=== PATIENT | female | born 1945 | race Caucasian/White ===

== ENCOUNTER 2023-04-20 13:36 | Emergency (ER) | payer MEDICARE, OTHER, SELFPAY ==
[2023-04-20 13:41] VITALS: BP 131/75
[2023-04-20 14:06] LABS: % Basophils 0.3 % (0-2); % Eosinophils 0.9 % (0-6); % Immature Granulocytes 0.3 % (0-0.5); % Lymphocytes 26.4 % (20.5-51.1); % Monocytes 5.7 % (1.7-9.3); % Neutrophils 66.4 % (42.2-75.2); Absolute Eosinophils 0.1 10^3/uL (0-0.7); Absolute Lymphocytes 2.3 10^3/uL (1.2-3.4); Absolute Monocytes 0.5 10^3/uL (0.1-0.6); Absolute Neutrophils 5.9 10^3/uL (1.4-6.5); Hematocrit 37.2 % (37.0-47.0); Hemoglobin 11.6 g/dL (12.0-16.0); Mean Corp Hgb Conc. 31.2 g/dL (33.0-37.0); Mean Corpuscular Hgb 21.6 pg (27.0-31.0); Mean Corpuscular Volume 69.3 fL (81.0-99.0); Mean Platelet Volume 9.6 fL (7.4-10.4); Nucleated Red Blood Cells % 0 %; Platelet Count 301 10^3/uL (130-400); Red Blood Cell Count 5.37 10^6/uL (4.20-5.40); Red Cell Dist. Width 15.4 % (11.5-14.5); White Blood Cell Count 8.9 10^3/uL (4.8-10.8)
[2023-04-20 14:08] LABS: Urine Albumin Trace (Neg - Trace); Urine Bilirubin Negative (Negative); Urine Character Very Cloudy (Clear); Urine Color Yellow; Urine Glucose Negative (Negative); Urine Ketone Trace (Negative); Urine Leukocyte 2+ (Negative); Urine Nitrite Negative (Negative); Urine Occult Blood 4+ (Negative); Urine Urobilinogen Negative (Neg - 1+)
[2023-04-20 14:16] LABS: Urine White Cell 16-20 /HPF (0-5)
[2023-04-20 14:17] LABS: Urine Bacteria Few (Negative); Urine Red Blood Cell >100 /HPF (0-2)
[2023-04-20 14:18] LABS: ALT (SGPT) 22 U/L (0-35); AST (SGOT) 23 U/L (14-36); Albumin 3.9 g/dl (3.5-5.0); Alkaline Phosphatase 75 U/L (38-126); Blood Urea Nitrogen 22 mg/dl (7-17); Calcium 9.5 mg/dl (8.4-10.2); Carbon Dioxide 32 mmol/L (22-30); Chloride 101 mmol/L (98-107); Glucose 95 mg/dl (70-99); Potassium 4.7 mmol/L (3.5-5.1); Sodium 140 mmol/L (135-145); Total Bilirubin 0.4 mg/dl (0.2-1.3); eGFR > 60.00
[2023-04-20 16:45] VITALS: BP 147/82; BMI 33.8
--- NOTE | 2023-04-20 16:54 | ED.GENMED ---
History of Present Illness
General
Chief Complaint: Back Pain
Source: patient
Exam Limitations: none
Time Seen by Provider: 04/20/23 16:46
Nursing documentation reviewed up to this point in time: agreed with
Travel History
Have you had any contact with someone who has COVID-19?: No
Do you have any symptoms of coronavirus? Fever > 100 degrees, chills, cough, shortness of breath, sore throat, loss of taste or smell, muscle aches, or headache?: No
History of Present Illness
History of Present Illness:
78-year-old female with history of HLD, migraines, kidney stones, cholecystectomy, hysterectomy presents stating she developed sudden onset right flank pain yesterday 11 AM, it waxes and wanes, her urine has been dark. She denies fever or chills,
she had nausea and almost vomited once yesterday morning but none since.
Past History
Past History
ED Past Medical History: Hypercholesterolemia and Other (Thalassemia, kidney stones, migraines)
ED Past Surgical History: Cholecystectomy
Social History
Tobacco: Non-smoker
Alcohol: None
Drug: None
Personal:
Living: with family
Review of Systems
Review of Systems
Allergies reviewed?: Yes
All Other Systems: ROS reviewed and negative except as documented in HPI and ROS
Constitutional: Denies fever or chills
ABD/GI: Reports abdominal pain (Mild mid to right lower abdomen) and nausea; Denies vomiting, diarrhea or constipated
: Reports flank pain (Right) and dark urine; Denies dysuria, difficulty voiding or urgency
Musculoskeletal: Reports no symptoms
Skin: Reports no symptoms
Neurological: Reports no symptoms
Phy Exam
Physical Exam
Physical Exam:
GENERAL: No acute distress. A&Ox3.
CONSTITUTIONAL: Afebrile.
RESPIRATORY: Regular respirations, nonlabored, lungs clear.
CARDIOVASCULAR: Regular rate and rhythm, no murmurs, no rubs.
GI: Soft, nontender, normal BS. Right flank tender to percussion
MUSCULOSKELETAL: Moves with ease. Well perfused.
SKIN: Warm, dry, pink
PSYCH: Normal mood and affect. Well kept, interactive and appropriate
NEUROLOGIC: Awake, alert and oriented. No focal neurological deficits
Course
Orders/Labs/Results
Orders:
Orders
04/20/23 13:53
Complete Blood Count/With Diff Urgent
Comprehensive Metabolic Panel Urgent
04/20/23 13:57
Urinalysis Reflex To Culture Urgent
Date Specimen was Collected: 04/20/23
Time Specimen was Collected: 13:43
Urine Microscopic Reflex Cult Urgent
Urine Culture Urgent
KYLE Source: U
Specimen Description:
Date Specimen was Collected: 04/20/23
Time Specimen was Collected: 13:43
04/20/23 16:57
CT Abd/pel Without Iv Or Oral Urgent
Comment:
Reason For Exam: R flank pain, hx stones
04/20/23 18:19
Ibuprofen [Motrin] 600 mg PO NOW STA
Nitrofurantoin Monohydrate [Macrobid] 100 mg PO NOW STA
Abnormal Lab Results
04/20/23 04/20/23
13:53 13:57
Hgb 11.6 L g/dL
(12.0-16.0)
MCV 69.3 L fL
(81.0-99.0)
MCH 21.6 L pg
(27.0-31.0)
MCHC 31.2 L g/dL
(33.0-37.0)
RDW 15.4 H %
(11.5-14.5)
Carbon Dioxide 32 H mmol/L
(22-30)
BUN 22 H mg/dl
(7-17)
Urine Ketones Trace A
(Negative)
Ur Occult Blood Reflex 4+ A
(Negative)
Leukocyte Esterase Rfl 2+ A
(Negative)
Urine RBC >100 A /HPF
(0-2)
Urine WBC (Reflex) 16-20 A /HPF
(0-5)
Urine Bacteria (Reflex) Few A
(Negative)
04/20/23 13:53
04/20/23 13:53
Vital Signs
Initial and Last Documented VS:
Initial Vital Signs
Temp Pulse Resp BP Pulse Ox
98.2 F 83 16 131/75 98
04/20/23 13:41 04/20/23 13:41 04/20/23 13:41 04/20/23 13:41 04/20/23 13:41
Last Documented Vital Signs
Temp Pulse Resp BP Pulse Ox
98.2 F 80 18 119/78 98
04/20/23 13:41 04/20/23 18:40 04/20/23 18:40 04/20/23 18:40 04/20/23 18:40
MDM/Problems Addressed
Differential Diagnosis Includes:
kidney stone, ureteral stone, UTI, pyelonephritis
MDM/Problems Addressed:
78-year-old female with history of HLD, migraines, kidney stones, cholecystectomy, hysterectomy presents stating she developed sudden onset right flank pain yesterday 11 AM, it waxes and wanes, her urine has been dark and only urinating small
amounts. She denies fever or chills, she had nausea and almost vomited once yesterday morning but none since.
Afebrile, NAD, declines when pain med offered
04/20/2023 1659 PM
CBC with no clinically significant abnormality
CMP with no clinically significant abnormality
UA: No nitrites, 2+ leukocytes, 16-20 WBCs. Few bacteria
Greater than 100 RBCs, plus for occult blood
04/20/[address] abdomen pelvis radiology results reviewed: IMPRESSION:
No findings to suggest urinary tract calculus or dilatation bilaterally.
Likely small hiatal hernia.
Small fat only containing umbilical hernia.
Will treat for hemorrhagic cystitis, UTI Rx for Nitrofurantoin sent to her pharmacy. She has had UTI in past with organism sensitivity to Nitrofurantoin
Not sure of etiology of right flank, abdomen pain, recommend Ibuprofen to see if it helps. See PCP if no improvement or if worsens
She has seen Urologist Dr. Lyons in the past and recommend f/u with him in 1-2 weeks.
*Critical Care Note
Total Time (30-74mins, 75-104mins- exclusive of procedures): Not Applicable
ED Attending Note
-
Portions of this chart may have been created with voice recognition software.� Occasional wrong word or��sound alike� substitutions may have occurred due to the inherent limitations of voice recognition software.
Discharge Plan
Departure
Patient Disposition: Home (Routine Discharge)
Date of Disposition: 04/20/23
Time of Disposition: 18:22
Patient with high blood pressure during this ER visit?: No
Condition: Good
Discharge Problem:
Acute hemorrhagic cystitis, Acute right flank pain
Instructions: Urinary tract infections in adults, Acute Cystitis (DC)
Prescriptions:
New
nitrofurantoin macrocrystal 100 mg capsule
100 mg PO BID 5 Days Qty: 10 0RF
No Action
aspirin 81 mg Tablet,Delayed Release (Dr/Ec)
81 mg PO DAILY
simvastatin 40 mg Tablet
40 mg PO QPM
calcium carbonate 600 mg calcium (1,500 mg) Tablet
750 mg PO DAILY
cyanocobalamin (vitamin B-12) 500 mcg Tablet
500 mcg PO DAILY
nortriptyline 10 mg Capsule
30 mg PO QHS
vitamin K2 40 mcg Tablet
40 mcg PO DAILY
ascorbic acid (vitamin C) [Vitamin C] 500 mg Tablet
500 mg PO DAILY
zinc 50 mg Tablet
50 mg PO DAILY
cholecalciferol (vitamin D3) [Vitamin D3] 125 mcg (5,000 unit) Tablet
125 mcg PO DAILY
cefdinir 300 mg capsule
300 mg PO BID
Rx Instructions:
10/28/22 filled on 10/27/22 #14
Referrals:
Nando Lyons MD [Active] - Call in 1-3 days for appt
Gregory Coronado MD [Family Provider] -
Activity Restrictions/Additional Instructions:
As we discussed, you are being treating you for a urinary tract infection.
I sent a prescription to your pharmacy for the antibiotic Nitrofurantoin to take twice a day. Start it tomorrow as you were given a dose here today.
Call and make appointment with Dr. Rao in 1-2 weeks for recheck.
Ibuprofen 600 mg (with food) as needed for right side back and abdominal pain.
See your doctor or return here immediately for worsening abdominal pain, vomiting, fever or feeling sicker in any way.
Interventions
Interventions:
*Risk Screen - Suicide Last Done: 04/20/23 18:21
*General Assessment Last Done: 04/20/23 16:45
*Neglect/Abuse Screening Last Done: 04/20/23 18:21
ED- Fall Risk Assessment Last Done: 04/20/23 16:45
*ED COVID-19 Vaccine History Last Done: 04/20/23 13:41
*Nursing Disposition Last Done: 04/20/23 18:40
ED-Musculoskeletal Assessment Last Done: 04/20/23 16:45
Discharge Date and Time
Discharge Date/Time: 04/20/23 18:40
[2023-04-20] MEDS: MACROBID 100 MG PO (18:33)
[2023-04-20] MEDS: MOTRIN 600 MG PO (18:33)
[2023-04-20 18:40] VITALS: BP 119/78
--- NOTE | 2023-04-20 18:40 | EDRN ---
Reviewed discharge instructions with patient. Verbalized understanding. Ambulated with steady gait to the lobby.
== END 2023-04-20 18:40 | disposition home or self-care (01) ==
LOC: EMR 13:36
PROVIDERS: Emergency Medicine; EMERGENCY PHYSICIAN Emergency Medicine; FAMILY PHYSICIAN Family Medicine
DX: N30.01 Acute cystitis with hematuria (principal); R10.9 Unspecified abdominal pain; E78.00 Pure hypercholesterolemia, unspecified; Z87.442 Personal history of urinary calculi
CPT/HCPCS: 99285; 74176; 80053; 81003; 81015; 85025; 87086

== ENCOUNTER 2023-04-22 02:54 | Inpatient (IN) | payer MEDICARE, OTHER, SELFPAY ==
[2023-04-21 21:46] VITALS: BP 138/96
[2023-04-21 22:10] LABS: Urine Albumin Negative (Neg - Trace); Urine Bilirubin Negative (Negative); Urine Character Clear (Clear); Urine Color Yellow; Urine Glucose Negative (Negative); Urine Ketone Negative (Negative); Urine Leukocyte Negative (Negative); Urine Nitrite Negative (Negative); Urine Occult Blood Negative (Negative); Urine Urobilinogen Negative (Neg - 1+)
[2023-04-21 22:12] LABS: % Basophils 0.3 % (0-2); % Eosinophils 1.6 % (0-6); % Immature Granulocytes 0.2 % (0-0.5); % Monocytes 5.6 % (1.7-9.3); % Neutrophils 83.3 % (42.2-75.2); Absolute Eosinophils 0.2 10^3/uL (0-0.7); Absolute Lymphocytes 1.1 10^3/uL (1.2-3.4); Absolute Monocytes 0.7 10^3/uL (0.1-0.6); Absolute Neutrophils 10.2 10^3/uL (1.4-6.5); Hematocrit 38.7 % (37.0-47.0); Hemoglobin 12.3 g/dL (12.0-16.0); Mean Corp Hgb Conc. 31.8 g/dL (33.0-37.0); Mean Corpuscular Hgb 21.9 pg (27.0-31.0); Mean Corpuscular Volume 68.9 fL (81.0-99.0); Mean Platelet Volume 9.6 fL (7.4-10.4); Nucleated Red Blood Cells % 0 %; Platelet Count 312 10^3/uL (130-400); Red Blood Cell Count 5.62 10^6/uL (4.20-5.40); Red Cell Dist. Width 14.7 % (11.5-14.5); White Blood Cell Count 12.3 10^3/uL (4.8-10.8)
[2023-04-21 22:21] LABS: Lactic Acid 1.4 mmol/L (0.7-2.0)
[2023-04-21 22:30] LABS: ALT (SGPT) 22 U/L (0-35); AST (SGOT) 26 U/L (14-36); Albumin 4.1 g/dl (3.5-5.0); Alkaline Phosphatase 100 U/L (38-126); Blood Urea Nitrogen 19 mg/dl (7-17); Calcium 9.4 mg/dl (8.4-10.2); Carbon Dioxide 28 mmol/L (22-30); Chloride 100 mmol/L (98-107); Glucose 130 mg/dl (70-99); Potassium 4.5 mmol/L (3.5-5.1); Sodium 134 mmol/L (135-145); Total Bilirubin 0.6 mg/dl (0.2-1.3); Total Protein 7.4 g/dl (6.3-8.2); eGFR > 60.00
--- NOTE | 2023-04-21 23:49 | ED.GENMED ---
History of Present Illness
General
Chief Complaint: Fever
Source: patient
Exam Limitations: none
Time Seen by Provider: 04/21/23 23:35
Travel History
Have you had any contact with someone who has COVID-19?: No
Do you have any symptoms of coronavirus? Fever > 100 degrees, chills, cough, shortness of breath, sore throat, loss of taste or smell, muscle aches, or headache?: No
History of Present Illness
History of Present Illness:
This is a 78 year old female that comes in with c/o fever. States that she was here yesterday and she was diagnosed with a bladder infection. State that she was given Nitrofurantoin. Tonight she started with a fever of 101 at home. State that she
just felt weak and had no strength. States that she was nauseated vomiting has a headache and felt of balance. States that felt weakn. States that she had chills with her fever. Denies any chest pain, SOB, abd pain, diarrhea, urinary burning.
Past History
Past History
ED Past Medical History: Hypercholesterolemia and Other (Thalassemia, kidney stones, migraines)
ED Past Surgical History: Cholecystectomy and Gynecological (Hysterectomy)
Social History
Tobacco: Non-smoker
Alcohol: None
Drug: None
Personal:
Living: with family
Review of Systems
Review of Systems
All Other Systems: ROS reviewed and negative except as documented in HPI and ROS
Constitutional: Reports fever and chills
EENT: Reports no symptoms
Respiratory: Reports no symptoms; Denies cough or trouble breathing
Cardiac: Reports no symptoms; Denies chest pain
ABD/GI: Reports nausea and vomiting; Denies abdominal pain or diarrhea
: Reports no symptoms; Denies dysuria, frequency or urgency
Musculoskeletal: Reports no symptoms
Skin: Reports no symptoms
Neurological: Reports dizzy and headache
Psychiatric: Reports no symptoms
Phy Exam
General Physical Exam
General Presentation: no apparent distress
General age: appears stated age
General Skin: warm and dry
General Habitus: elderly
General Mental: alert
General Hydration: appears well hydrated
ENT Exam
ENT Exam: TM's normal, pharynx normal and neck supple
Eye Exam
Eye Exam: EOMI
Cardiovascular Exam
Cardiovascular Exam: regular rate/rhythm, no edema and normal peripheral pulses
Pulmonary Exam
Pulmonary Exam: lungs clear, no respiratory distress, no rales, chest non tender, no crackles, no rhonchi, no wheezing and no cough
Gastrointestinal Exam
Gastrointestinal Exam: normal bowel sounds, soft, no organomegaly, no pulsatile mass, non distended and tender (right lower abd pain)
Musculoskeletal Exam
Musculoskeletal Exam: full ROM and no edema
Skin Exam
Skin Exam: normal color, warm/dry, no rash and no petechia
Psychiatric Exam
Psychiatric Exam: normal mood/affect
Course
Orders/Labs/Results
Orders:
Orders
04/21/23 21:59
CMP [Comprehensive Metabolic Panel] Urgent
04/21/23 22:00
Complete Blood Count/With Diff Urgent
Urinalysis Urgent
Date Specimen was Collected: 04/21/23
Time Specimen was Collected: 21:51
Influenza A+B Rapid Molecular Urgent
KYLE Source: Nasal Swab
Specimen Description:
Date Specimen was Collected: 04/21/23
Time Specimen was Collected: 21:51
04/21/23 22:01
Lactic Acid Urgent
04/21/23 23:47
0.9% Sodium Chloride 1000 ml [Nss] 1,000 ml IV BOLUS
04/21/23 23:49
Acetaminophen 1000MG/100Ml [Ofirmev] 1,000 mg in 100 ml IV ONCE
Acetaminophen IV Indication:: ED Narcotic Naive Pt-ONCE
04/21/23 23:58
COVID-19 Antigen Urgent
Source: Nasal Swab
Blood Culture Q30M
KYLE Source: Blood/Venous
Specimen Description:
04/22/23 00:07
Blood Culture Q30M
KYLE Source: Blood/Venous
Specimen Description:
04/22/23 00:15
CT Abd/pelvis W Iv Cont Urgent
Reason For Exam: Right lower abd pain
04/22/23 01:42
Electrocardiogram (*1) Urgent
Reason for Study: Fatigue / Weakness
EKG- Treatment ONCE
04/22/23 01:51
Admit/Transfer Patient As Directed
Co-Sign Provider:
Level of Care: Inpatient admission
Assign to:: Medical/Surgical
Physician / Group: [facility]
Diagnosis: UTI, fevers, leukoytosis
Reason for Hospitalization: UTI - IV Abx
Expected length of stay greater than two midnights?: Yes
ELOS- Estimated Length of Stay in days: 2
I certify the patient meets the requirements for IP care: Yes
04/22/23 01:52
Code Status As Directed
Resuscitation Status: Full Code
04/22/23 01:54
CefTRIAXone [Rocephin] 1,000 mg IV NOW STA
04/22/23 01:57
Sterile Water [Sterile Water For Injection] 10 ml IV NOW STA
04/22/23 02:00
Flush (0.9% Sodium Chloride) [Flush (Nss)] See Dose Instructions IV PER PROTOCOL
Abnormal Lab Results
04/21/23 04/21/23
21:59 22:00
WBC 12.3 H 10^3/uL
(4.8-10.8)
RBC 5.62 H 10^6/uL
(4.20-5.40)
MCV 68.9 L fL
(81.0-99.0)
MCH 21.9 L pg
(27.0-31.0)
MCHC 31.8 L g/dL
(33.0-37.0)
RDW 14.7 H %
(11.5-14.5)
Absolute Neuts (auto) 10.2 H 10^3/uL
(1.4-6.5)
Absolute Lymphs (auto) 1.1 L 10^3/uL
(1.2-3.4)
Absolute Monos (auto) 0.7 H 10^3/uL
(0.1-0.6)
Neutrophils % 83.3 H %
(42.2-75.2)
Lymphocytes % 9.0 L %
(20.5-51.1)
Sodium 134 L mmol/L
(135-145)
BUN 19 H mg/dl
(7-17)
Glucose 130 H mg/dl
(70-99)
04/21/23 22:00
04/21/23 21:59
Leukocytosis, slight dehydration. Glucose nonfasting. Urine negative for infection. Negative for influenza , COVID negative, Lactic acid normal at 1.4
Vital Signs
Initial and Last Documented VS:
Initial Vital Signs
Temp Pulse Resp BP Pulse Ox
101.1 F H 106 24 138/96 96
04/21/23 21:46 04/21/23 21:46 04/21/23 21:46 04/21/23 21:46 04/21/23 21:46
Last Documented Vital Signs
Temp Pulse Resp BP Pulse Ox
99.4 F 105 18 112/78 96
04/22/23 01:04 04/22/23 02:01 04/22/23 02:01 04/22/23 02:01 04/22/23 02:01
MDM/Problems Addressed
Differential Diagnosis Includes:
Appendicitis, bacterial infection. COVID, Influenza
MDM/Problems Addressed:
This is a 78 year old female that comes in with c/o fever. States that she was here last night and diagnosed with a UTI. Patient was given Nitrofurantoin and discharge home. States that tonight she has a fever of 101 at home and was very weak and
felt like she was going to pass out.
Will get labs, CT abd, IV fluids and Tylenol.
Back into see patient. Explained that her WBC are elevated but her CT is normal along with her lactic acid. Patient is negative for COVID and influenza. However, that fact that she was diagnosed with a UTI yesterday it is concerning that this could
be an infection in the blood or a viral illness. With patient weakness will admit. Patient states that this time she is feeling better. Will admit. hospitalist notified.
Chronic conditions affecting care:
NA
Acute Exacerbation and/or Progression of Chronic Illness:
NA
*Radiology
Radiology exam reviewed: radiology read reviewed (CT [place]-Minimal inferior lingual scatting or atelectasis. Normal heart size. No pleural effusion. No free air or fluid. Subcentimeter possible cysts right hepatic lobe. Cholecystectomy with no
biliary duct dilation. A few too small to characterize low density renal cortical foci. No ), all reviewed NAD by ED Provider (CT cont- No hydronephrosis, stone or perinephric edema. Other solid organs are unremarkable. Hysterectomy with
unremarkable adnexa and minimally filled urinary bladder. Minimal fecal loading with normal terminal ileum and appendix. Small sliding hiatal hernia. Small bowel unremarkable. Minimal ) and other (CT cont- minimal aortic atherosclerosis without
aneurysm. Tiny fat-containing umbilical hernia. No acute osseous abnormality. )
*Pulse Oximetry
Patient hypoxic: no
*EKG
Interpreted by ED Provider?: Yes
Heart Rate: 99
Rate: normal
Rhythm: sinus
[place]: normal axis
Interval: normal interval
QRS Pattern: normal QRS
Ischemia: no ischemia
*Technical Assoc Interpretation
Rate: Technical Assoc- N/A
*Critical Care Note
Total Time (30-74mins, 75-104mins- exclusive of procedures): Not Applicable
ED Attending Note
-
Portions of this chart may have been created with voice recognition software.� Occasional wrong word or��sound alike� substitutions may have occurred due to the inherent limitations of voice recognition software.
Discharge Plan
Departure
Patient Disposition: Admit
Date of Disposition: 04/22/23
Time of Disposition: 01:40
Admit to: Med/Surg
Presentation/result/management discussed w/ accepting MD/DO: Hospitalist
Patient with high blood pressure during this ER visit?: Yes
Condition: Good
Covid-19: Negative COVID-19
Discharge Problem:
Fever and chills, Weakness
Prescriptions:
No Action
simvastatin 40 mg Tablet
40 mg PO QPM
cyanocobalamin (vitamin B-12) 500 mcg Tablet
500 mcg PO DAILY
nortriptyline 10 mg Capsule
30 mg PO QHS
vitamin K2 40 mcg Tablet
40 mcg PO DAILY
ascorbic acid (vitamin C) [Vitamin C] 500 mg Tablet
500 mg PO DAILY
zinc 50 mg Tablet
50 mg PO DAILY
cholecalciferol (vitamin D3) [Vitamin D3] 125 mcg (5,000 unit) Tablet
125 mcg PO DAILY
nitrofurantoin macrocrystal 100 mg capsule
100 mg PO BID 5 Days Qty: 10 0RF
pantoprazole [Protonix] 40 mg Tablet,Delayed Release (Dr/Ec)
40 mg PO DAILY
Referrals:
Gregory Coronado MD [Family Provider] -
Interventions
Interventions:
*Risk Screen - Suicide Last Done: 04/21/23 21:46
*General Assessment Last Done: 04/22/23 00:23
*Neglect/Abuse Screening Last Done: 04/21/23 21:46
ED- Fall Risk Assessment Last Done: 04/22/23 00:18
*ED COVID-19 Vaccine History Last Done: 04/22/23 00:23
ED- Neurological Assessment Last Done: 04/22/23 00:18
ED-Skin Assessment Last Done: 04/22/23 00:18
[2023-04-21 23:57] VITALS: BMI 35.9
[2023-04-22] VITALS: BP 122/65
[2023-04-22] MEDS: OFIRMEV 100 IV (00:04)
[2023-04-22] MEDS: NSS 1000 IV ×2 (00:04→03:19)
[2023-04-22 00:47] LABS: COVID-19 Antigen Negative (Negative)
--- NOTE | 2023-04-22 01:44 | HPS.HSE ---
Family Physician
-
Family Physician: Gregory Coronado
Chief Complaint
-
fever
History of Present Illness
78 y/o F, hx of HLD, hx of renal stones, presents to ER for fever. Temp recorded as 101.1. Patient is currently on PO Abx for UTI dx 24 hours earlier in ER (dark urine, flank pain). Patient reports weakness, poor strength. Other symptoms include
nausea/vomiting, headache and imbalance. She admits to chills as well. No SOB, abd pain.
Medical History
Past Medical History
Past Medical History: Reports Other (Hypercholesterolemia and Other (Thalassemia, kidney stones, migraines))
Past Surgical History: Reports Other (Cholecystectomy and Gynecological (Hysterectomy))
Social History
Tobacco: Non-smoker
Alcohol: None
Drug: None
Personal:
Living: With Family
Family History
Family History: Not pertinent
Allergies / Home Medications
Allergies reflects when Allergies were last updated in [email or web address].
Home Medications with original date entered in [email or web address]
Allergy/Medication List:
Allergies
Allergy/AdvReac Type Severity Reaction Status Date / Time
adhesive tape Allergy Mild Rash Verified 04/21/23 21:50
Home Medications
ascorbic acid (vitamin C) 500 mg tablet (Vitamin C) 500 mg PO DAILY Supplement 10/28/22
cholecalciferol (vitamin D3) 125 mcg (5,000 unit) tablet (Vitamin D3) 125 mcg PO DAILY Supplement 10/28/22
cyanocobalamin (vitamin B-12) 500 mcg tablet 500 mcg PO DAILY Supplement 10/28/22
nortriptyline 10 mg capsule 30 mg PO QHS Mental Health/Anxiety 10/28/22
simvastatin 40 mg tablet 40 mg PO QPM High Cholesterol 10/28/22
vitamin K2 40 mcg tablet 40 mcg PO DAILY Supplement 10/28/22
zinc 50 mg tablet 50 mg PO DAILY Supplement 10/28/22
nitrofurantoin macrocrystal 100 mg capsule 100 mg PO BID 5 days #10 caps 04/20/23
pantoprazole 40 mg tablet,delayed release (Protonix) 40 mg PO DAILY 04/22/23
Review of Systems
-
A 12 point ROS was completed and negative except as noted: Yes
Physical Exam
Vital Signs
Vital Signs
Temp Pulse Resp BP Pulse Ox
99.4 F 106 20 122/65 94
04/22/23 01:04 04/22/23 00:00 04/22/23 00:00 04/22/23 00:00 04/22/23 00:00
Physical Exam
General: No Apparent Distress and Other (elderly)
HEENT: NormoCephalic and Anicteric
Respiratory: No Wheezes or Rales
Cardiac: S1/S2 and Regular Rhythm
Neuro: AO x 3
Psych: Calm
Laboratory Results
-
04/21/23 22:00
04/21/23 21:59
Laboratory Results
Lactic Acid 1.4 mmol/L (0.7-2.0) 04/21/23 22:01
Total Bilirubin 0.6 mg/dl (0.2-1.3) 04/21/23 21:59
AST 26 U/L (14-36) 04/21/23 21:59
ALT 22 U/L (0-35) 04/21/23 21:59
Alkaline Phosphatase 100 U/L (38-126) 04/21/23 21:59
Data Reviewed
-
Lab Data: Labs Reviewed by me
Impression/Plan
-
Assessment:
Fever
- suspected UTI based off UA 3/4 and symptoms
- Ucx from that UA with only [id number] CU. but with recurrent fevers, repeat culture now
- follow blood cultures
- CT: prelim no stones, hydro - await formal report
- Empiric Rocephin, day 1
- monitor fever curve, WBC
Hypercholesterolemia - statin
Thalassemia
hx of kidney stones
migraines
DVT ppx: Lovenox
Code: Full
[2023-04-22 02:01] VITALS: BP 112/78
[2023-04-22] MEDS: STERILE WATER FOR INJECTION 10 ML IV ×2 (02:26→22:38)
[2023-04-22] MEDS: ROCEPHIN 1000 MG IV ×2 (02:26→22:38)
[2023-04-22] MEDS: PAMELOR PO (03:21)
[2023-04-22 05:37] VITALS: BP 137/73; BMI 33.3
[2023-04-22 07:07] LABS: Hematocrit 33.2 % (37.0-47.0); Hemoglobin 10.7 g/dL (12.0-16.0); Mean Corp Hgb Conc. 32.2 g/dL (33.0-37.0); Mean Corpuscular Hgb 21.8 pg (27.0-31.0); Mean Corpuscular Volume 67.6 fL (81.0-99.0); Mean Platelet Volume 9.6 fL (7.4-10.4); Platelet Count 252 10^3/uL (130-400); Red Blood Cell Count 4.91 10^6/uL (4.20-5.40); Red Cell Dist. Width 14.8 % (11.5-14.5); White Blood Cell Count 9.5 10^3/uL (4.8-10.8)
[2023-04-22 07:16] VITALS: BP 120/75
[2023-04-22 07:18] LABS: Blood Urea Nitrogen 15 mg/dl (7-17); Calcium 8.5 mg/dl (8.4-10.2); Carbon Dioxide 26 mmol/L (22-30); Chloride 106 mmol/L (98-107); Estimated Creatinine Clearance 75 ml/min; Glucose 101 mg/dl (70-99); Potassium 3.6 mmol/L (3.5-5.1); Sodium 137 mmol/L (135-145); eGFR > 60.00
[2023-04-22] MEDS: VITAMIN C 500 MG PO (07:28)
[2023-04-22] MEDS: PROTONIX 40 MG PO (07:29)
[2023-04-22] MEDS: VITAMIN B-12 500 MCG PO (07:29)
[2023-04-22] MEDS: VITAMIN D3 (cholecalciferol) 125 MCG PO (07:29)
[2023-04-22] MEDS: TYLENOL 650 MG PO (11:35)
--- NOTE | 2023-04-22 11:51 | W.PN.UPDATE ---
Update Note
Progress Note Update
Seen and examined independent of overnight physician. States tolerating diet. Fever on admission.
General: No Apparent Distress and Other (elderly)
HEENT: NormoCephalic and Anicteric
Respiratory: No Wheezes or Rales
Cardiac: S1/S2 and Regular Rhythm
Abdomen positive bowel sounds soft nontender nondistended
Neuro: AO x 3
Psych: Calm
Fever
- suspected UTI based off UA 04/19 and symptoms
- Ucx from that UA with only [id number] CU. but with recurrent fevers, repeat culture pending in lab
- follow blood cultures
- CT negative for obstruction.
- Empiric Rocephin, day 1
- monitor fever curve, WBC
Hypercholesterolemia - statin
Thalassemia
hx of kidney stones
migraines
DVT ppx: Lovenox
Code: Full
--- NOTE | 2023-04-22 13:49 | CM ---
manager manufacturing reviewed patient's chart and met with patient and patient lives with his spouse in a 2 story home, patient is independent with adl's and ambulation, no dme, patient drives, patient has a prescription plan and uses [facility] pharmacy.
PCP: Dr. Ayala
Plan; Home when stable, no needs.
[2023-04-22 15:35] VITALS: BP 110/62
[2023-04-22] MEDS: LIPITOR 20 MG PO (17:29)
[2023-04-22] MEDS: LOVENOX 40 MG SC (17:30)
[2023-04-22] MEDS: PAMELOR 30 MG PO (20:34)
[2023-04-22] MEDS: COLACE 100 MG PO (22:38)
[2023-04-22 23:06] VITALS: BP 149/73
[2023-04-23 07:08] LABS: % Basophils 0.4 % (0-2); % Eosinophils 6.8 % (0-6); % Immature Granulocytes 0.1 % (0-0.5); % Lymphocytes 19.9 % (20.5-51.1); % Monocytes 9.3 % (1.7-9.3); % Neutrophils 63.5 % (42.2-75.2); Absolute Eosinophils 0.5 10^3/uL (0-0.7); Absolute Lymphocytes 1.3 10^3/uL (1.2-3.4); Absolute Monocytes 0.6 10^3/uL (0.1-0.6); Absolute Neutrophils 4.3 10^3/uL (1.4-6.5); Hematocrit 32.8 % (37.0-47.0); Hemoglobin 10.4 g/dL (12.0-16.0); Mean Corp Hgb Conc. 31.7 g/dL (33.0-37.0); Mean Corpuscular Hgb 21.5 pg (27.0-31.0); Mean Corpuscular Volume 67.9 fL (81.0-99.0); Nucleated Red Blood Cells % 0 %; Platelet Count 240 10^3/uL (130-400); Red Blood Cell Count 4.83 10^6/uL (4.20-5.40); Red Cell Dist. Width 14.6 % (11.5-14.5); White Blood Cell Count 6.7 10^3/uL (4.8-10.8)
[2023-04-23 07:41] LABS: Blood Urea Nitrogen 18 mg/dl (7-17); Calcium 8.8 mg/dl (8.4-10.2); Carbon Dioxide 27 mmol/L (22-30); Chloride 102 mmol/L (98-107); Estimated Creatinine Clearance 75 ml/min; Glucose 94 mg/dl (70-99); Sodium 135 mmol/L (135-145); eGFR > 60.00
[2023-04-23 08:00] VITALS: BP 149/70
[2023-04-23] MEDS: VITAMIN B-12 500 MCG PO (10:15)
[2023-04-23] MEDS: VITAMIN D3 (cholecalciferol) 125 MCG PO (10:15)
[2023-04-23] MEDS: COLACE 100 MG PO ×2 (10:15→20:00)
[2023-04-23] MEDS: PROTONIX 40 MG PO (10:16)
[2023-04-23] MEDS: VITAMIN C 500 MG PO (10:16)
--- NOTE | 2023-04-23 10:36 | PTOTSP ---
The patient is independent with ambulation and elevations, demonstrating no mobility deficits to warrant acute PT needs. Patient noted she plans to attend Outpatient PT to improve left knee strength. PT will sign off at this time.
--- NOTE | 2023-04-23 11:34 | CM ---
Chart reviewed and patient plans on returning to home with spouse with possible outpatient PT.
Plan; Home no needs.
--- NOTE | 2023-04-23 12:03 | W.PN.HOSP.TC ---
Today's Communication/Plan
-
Monitor fever
Continue antibiotic
start Dispo planning
Assessment / Plan
Assessment / Plan
Fever
- suspected UTI based off UA 3/4 and symptoms
- Ucx with no growth. No cough. No GI symptoms. No rash.
- follow blood cultures neg so far.
- CT negative for obstruction.
- Treat with rocephin.
- monitor fever curve, WBC downtrended.
Hypercholesterolemia - statin
Thalassemia
hx of kidney stones
migraines
DVT ppx: Lovenox
Code: Full
Anticipated Discharge: Within 24 hours
Subjective/Interval History
-
Date of Service: April 23, 2023
Afebrile
Denies flank pain
Objective Data
-
Labs:
Laboratory Results
04/23/23
06:30
WBC 6.7
Hgb 10.4 L
Hct 32.8 L
Plt Count 240
Sodium 135
Potassium 4.0
Chloride 102
Carbon Dioxide 27
BUN 18 H
Creatinine 0.5 L
Glucose 94
Calcium 8.8
Vital Signs:
Vital Signs
Temp Pulse Resp BP Pulse Ox
98.6 F 76 18 149/70 95
04/23/23 08:00 04/23/23 08:00 04/23/23 08:00 04/23/23 08:00 04/23/23 08:00
I&O
04/22/23 04/23/23 04/24/23
06:59 06:59 06:59
Intake Total 660 / 660
Balance 660 / 660
Physical Exam
-
General: Well Developed and No Apparent Distress
HEENT: Normocephalic, Atraumatic and Moist Mucous Membranes
Respiratory: Clear to Auscultation
Cardiac: Regular Rhythm and S1/S2; Negative Murmur, Rub or Gallop
GI: Soft, Nontender, Nondistended and Normal Bowel Sounds; Negative Organomegaly
Rectal: Deferred by Provider
Genito-urinary: No Costovertebral Tender
Musculoskeletal: No Clubbing, No Cyanosis and No Edema
Skin: Negative Rash
Neuro: Awake, Alert, Oriented, AO x 3 and Nonfocal/Grossly Intact
Psych: Calm
--- NOTE | 2023-04-23 14:18 | PN.CDI ---
CDI
- -
CDI:
Physician Documentation Request
Admit Date: 04/22/23 02:54
Dear Doctor Jossy,
Patient presented to ED with complaints of fever.
H&P and progress notes states 'Fever- suspected UTI based off UA 3/4 and symptoms... treat with Rocephin'
Patient presented with a temp of 101.1, Heart rate 106, respiratory rate of 24 and WBC 12.3
Please clarify which of the following most accurately describes the status of the patient's infection:
Sepsis
- Systemic manifestations of infection, with 2 or more SIRS criteria which include:
- Fever >100.4 degrees F or hypothermia < 96.8 degrees F
- Leukocytosis - WBC > 12,000 or leukopenia - WBC < 4,000 or > 10% bands
- Tachycardia > 90 beats per minute
- Tachypnea - RR > 20 breaths per minute or PaCO2 , 32mmHg
Source: Merck Manual 2013
Localized Infection Only, Without Systemic Illness
Other
Use of terms such as suspected, likely, concern for, or probable (associated with a specific diagnosis that is being evaluated, monitored, or treated as if it exists) are acceptable and can be coded in the inpatient setting, when documented at the
time of discharge.
Thank you,
Agustina Franco RN, BSN
CDI Specialist
tiger text
Please use your independent medical judgment in providing your response.
[2023-04-23 15:00] VITALS: BP 165/62
[2023-04-23] MEDS: LOVENOX 40 MG SC (17:12)
[2023-04-23] MEDS: LIPITOR 20 MG PO (17:12)
[2023-04-23] MEDS: REFRESH EYE DROPS (PF) 1 DROPS OPHTH ×2 (17:13→20:01)
[2023-04-23] MEDS: MIRALAX 17 GRAMS PO (20:54)
[2023-04-23] MEDS: MELATONIN 3 MG PO (21:41)
[2023-04-23] MEDS: PAMELOR 30 MG PO (21:41)
[2023-04-23] MEDS: ROCEPHIN 1000 MG IV (22:59)
[2023-04-23] MEDS: STERILE WATER FOR INJECTION 10 ML IV (22:59)
[2023-04-23 23:00] VITALS: BP 149/66
[2023-04-24 07:20] VITALS: BP 135/69
[2023-04-24 07:57] LABS: % Basophils 0.6 % (0-2); % Eosinophils 6.8 % (0-6); % Immature Granulocytes 0.3 % (0-0.5); % Lymphocytes 25.7 % (20.5-51.1); % Neutrophils 57.6 % (42.2-75.2); Absolute Eosinophils 0.4 10^3/uL (0-0.7); Absolute Lymphocytes 1.7 10^3/uL (1.2-3.4); Absolute Monocytes 0.6 10^3/uL (0.1-0.6); Absolute Neutrophils 3.7 10^3/uL (1.4-6.5); Hematocrit 37.9 % (37.0-47.0); Hemoglobin 12.1 g/dL (12.0-16.0); Mean Corp Hgb Conc. 31.9 g/dL (33.0-37.0); Mean Corpuscular Hgb 21.7 pg (27.0-31.0); Mean Platelet Volume 9.6 fL (7.4-10.4); Nucleated Red Blood Cells % 0 %; Platelet Count 292 10^3/uL (130-400); Red Blood Cell Count 5.57 10^6/uL (4.20-5.40); Red Cell Dist. Width 14.9 % (11.5-14.5); White Blood Cell Count 6.5 10^3/uL (4.8-10.8)
[2023-04-24 08:27] LABS: Blood Urea Nitrogen 19 mg/dl (7-17); Calcium 9.5 mg/dl (8.4-10.2); Carbon Dioxide 27 mmol/L (22-30); Chloride 102 mmol/L (98-107); Estimated Creatinine Clearance 75 ml/min; Glucose 106 mg/dl (70-99); Potassium 3.9 mmol/L (3.5-5.1); Sodium 138 mmol/L (135-145); eGFR > 60.00
[2023-04-24] MEDS: PROTONIX 40 MG PO (09:29)
[2023-04-24] MEDS: VITAMIN C 500 MG PO (09:29)
[2023-04-24] MEDS: VITAMIN B-12 500 MCG PO (09:29)
[2023-04-24] MEDS: REFRESH EYE DROPS (PF) 1 DROPS OPHTH (09:30)
[2023-04-24] MEDS: VITAMIN D3 (cholecalciferol) 125 MCG PO (09:30)
[2023-04-24] MEDS: COLACE 100 MG PO (09:30)
--- NOTE | 2023-04-24 10:23 | W.PN.HOSP.TC ---
Addendum entered and electronically signed by Richard Fenton MD 04/24/23 10:32:
[id number]
Original Note:
Today's Communication/Plan
-
dc home
Assessment / Plan
Assessment / Plan
Fever
- suspected UTI based off UA 3/4 and symptoms
- Ucx with no growth on admission. No cough. No GI symptoms. No rash.
- follow blood cultures neg so far.
- CT negative for obstruction.
- stopped rocephin.
- Remains afebrile after initial episode of fever. WBC downtrended.
Dehydration
-s/p IVF.
-BP stable. ambulating without difficulty.
Hypercholesterolemia - statin
Thalassemia
hx of kidney stones
migraines
DVT ppx: Lovenox
Code: Full
More than 30 minutes spent in discharge including
Final examination of the patient
Summarizing hospital stay
Instructions for continuing care to all relevant caregivers
Preparation of discharge records, prescriptions, and referral forms
Total time spent (in minutes): 40
Anticipated Discharge: Today
Subjective/Interval History
-
Date of Service: April 24, 2023
Denies any lightheaded or dizziness
Denies any flank pain
Tolerating diet
Denies dysuria
Remains afebrile
Objective Data
-
Labs:
Laboratory Results
04/24/23
07:36
WBC 6.5
Hgb 12.1
Hct 37.9
Plt Count 292 D
Sodium 138
Potassium 3.9
Chloride 102
Carbon Dioxide 27
BUN 19 H
Creatinine 0.6
Glucose 106 H
Calcium 9.5
Vital Signs:
Vital Signs
Temp Pulse Resp BP Pulse Ox
97.7 F 75 16 135/69 97
04/24/23 07:20 04/24/23 07:20 04/24/23 07:20 04/24/23 07:20 04/24/23 07:20
I&O
04/23/23 04/24/23 04/25/23
06:59 06:59 06:59
Intake Total 660 / 660 1200 / 1200
Balance 660 / 660 1200 / 1200
Physical Exam
-
General: Well Developed and No Apparent Distress
HEENT: Normocephalic, Atraumatic and Moist Mucous Membranes
Respiratory: Clear to Auscultation
Cardiac: Regular Rhythm and S1/S2; Negative Murmur, Rub or Gallop
GI: Soft, Nontender, Nondistended and Normal Bowel Sounds; Negative Organomegaly
Rectal: Deferred by Provider
Genito-urinary: No Costovertebral Tender
Musculoskeletal: No Clubbing, No Cyanosis and No Edema
Skin: Negative Rash
Neuro: Awake, Alert, Oriented, AO x 3 and Nonfocal/Grossly Intact
Hematologic / Lymphatic: No Lymphadenopathy
Psych: Calm
--- NOTE | 2023-04-24 10:44 | CM ---
Chart reviewed and plan i to home today.
Plan; Home today.
--- NOTE | 2023-04-24 11:58 | W.DCSUMMARY ---
Discharge Summary
Discharge Data
Date of Admission: 04/22/23
Date of Discharge: 04/24/23
-
Pending Results: No
Hospital Course
78-year-old female past medical history of hyperlipidemia, thalassemia, history of kidney stones, migraines, B12 deficiency, GERD who is presenting complaints of fever, headache and lightheadedness and weakness. Patient had temperature 101 on
admission. It was suspected patient with a urinary tract infection with symptoms as patient was also complaining of dysuria. Patient nitrofurantoin was stopped and started on IV ceftriaxone. Patient urine culture initial with contamination and
repeat cultures with no growth. Patient blood cultures remain negative. Patient was not hypoxic and without any cough. Patient with no rash. Patient with no GI symptomology. Patient received 3 doses of IV ceftriaxone 1 g. Patient symptoms
greatly improved and resolved with IV fluid resuscitation. Patient was ambulating and tolerating diet. Patient afebrile. Evaluated by therapy recommended no mobility deficit. Patient be discharged home.
Discharge Plan
-
Patient Disposition: Home (Routine Discharge)
Discharge Diagnosis/Procedures: Fever
Condition: Fair
Diet: As tolerated
Activity: No restrictions
Driving Restrictions: As prior to admission
Referrals:
Gregory Coronado MD [Family Provider] - in less than 1 week
Prescriptions:
Continued
simvastatin 40 mg Tablet
40 mg PO QPM
cyanocobalamin (vitamin B-12) 500 mcg Tablet
500 mcg PO DAILY
nortriptyline 10 mg Capsule
30 mg PO QHS
vitamin K2 40 mcg Tablet
40 mcg PO DAILY
ascorbic acid (vitamin C) [Vitamin C] 500 mg Tablet
500 mg PO DAILY
zinc 50 mg Tablet
50 mg PO DAILY
cholecalciferol (vitamin D3) [Vitamin D3] 125 mcg (5,000 unit) Tablet
125 mcg PO DAILY
pantoprazole [Protonix] 40 mg Tablet,Delayed Release (Dr/Ec)
40 mg PO DAILY
Discontinued
nitrofurantoin macrocrystal 100 mg capsule
100 mg PO BID 5 Days Qty: 10 0RF
Discharge Orders:
Discharge Patient (As Directed); Ordered 04/24/23
Ordered By: Richard Fenton
== END 2023-04-24 13:13 | disposition home or self-care (01) | DRG 872 ==
LOC: 4 WEST ACU 02:54
PROVIDERS: Clinical Nurse Specialist Family Health; Emergency Medicine; ADMITTING PHYSICIAN Internal Medicine; ATTENDING PHYSICIAN Hospitalist; EMERGENCY PHYSICIAN Student in an Organized Health Care Education/Training Program; FAMILY PHYSICIAN Family Medicine
DX: A41.9 Sepsis, unspecified organism (principal); N39.0 Urinary tract infection, site not specified; E78.00 Pure hypercholesterolemia, unspecified; D56.9 Thalassemia, unspecified; G43.909 Migraine, unspecified, not intractable, without status migrainosus; Z11.52 Encounter for screening for COVID-19; Z87.442 Personal history of urinary calculi; Z91.048 Other nonmedicinal substance allergy status; E86.0 Dehydration
CPT/HCPCS: 74176; 74177; 80048; 80053; 81003; 81015; 83605; 85025; 85027; 87040; 87086; 87502; 87811; 93005; 96361; 96374; 97161; 99285; Q9967

== ENCOUNTER → 2023-07-25 10:22 | Outpatient (REF) | payer MEDICARE, OTHER, SELFPAY | LOC: MRI 3T 10:22 | PROVIDERS: ATTENDING PHYSICIAN Orthopaedic Surgery; FAMILY PHYSICIAN Family Medicine | DX: M25.562 Pain in left knee (principal) | CPT/HCPCS: 73721 ==

== ENCOUNTER → 2023-08-10 06:49 | Outpatient (REF) | payer MEDICARE, OTHER, SELFPAY ==
[2023-08-10 08:52] LABS: Hematocrit 38.9 % (37.0-47.0); Hemoglobin 11.9 g/dL (12.0-16.0); Mean Corp Hgb Conc. 30.6 g/dL (33.0-37.0); Mean Corpuscular Hgb 21.4 pg (27.0-31.0); Mean Corpuscular Volume 69.8 fL (81.0-99.0); Mean Platelet Volume 10.4 fL (7.4-10.4); Platelet Count 265 10^3/uL (130-400); Red Blood Cell Count 5.57 10^6/uL (4.20-5.40); Red Cell Dist. Width 14.5 % (11.5-14.5); White Blood Cell Count 7.1 10^3/uL (4.8-10.8)
== END ==
LOC: SDSPAT 06:49
PROVIDERS: ATTENDING PHYSICIAN Specialist; FAMILY PHYSICIAN Family Medicine; OTHER PHYSICIAN Internal Medicine Cardiovascular Disease
DX: Z01.818 Encounter for other preprocedural examination (principal)
CPT/HCPCS: 36415; 85027; 93005

== ENCOUNTER 2023-08-18 06:21 | Day surgery (SDC) | payer MEDICARE, OTHER, SELFPAY ==
[2023-08-10 07:15] VITALS: BMI 33.0
[2023-08-18] VITALS (9 sets, daily range): BP systolic 125–155; BP diastolic 64–92; BMI 33.0; BMI 33.6
[2023-08-18] MEDS: CELEBREX 200 MG PO (09:29)
[2023-08-18] MEDS: TYLENOL 1000 MG PO (09:29)
[2023-08-18] MEDS: NORMOSOL-R 1000 IV (09:47)
[2023-08-18] MEDS: SUBLIMAZE 25 MCG IV (12:13)
== END 2023-08-18 13:29 | disposition home or self-care (01) ==
LOC: SDS 06:21
PROVIDERS: ATTENDING PHYSICIAN Specialist
DX: S83.242A Other tear of medial meniscus, current injury, left knee, initial encounter (principal); S83.282A Other tear of lateral meniscus, current injury, left knee, initial encounter; X58.XXXA Exposure to other specified factors, initial encounter; M22.42 Chondromalacia patellae, left knee; M23.42 Loose body in knee, left knee
CPT/HCPCS: 29880

== ENCOUNTER → 2023-09-02 06:40 | Outpatient (REF) | payer MEDICARE, OTHER, SELFPAY | LOC: MRI 06:40 | PROVIDERS: ATTENDING PHYSICIAN Orthopaedic Surgery; FAMILY PHYSICIAN Family Medicine | DX: M25.561 Pain in right knee (principal) | CPT/HCPCS: 73721 ==

== ENCOUNTER 2024-02-02 20:28 | Emergency (ER) | payer MEDICARE, OTHER, SELFPAY ==
[2024-02-02 20:33] VITALS: BP 163/76
[2024-02-02 20:47] LABS: % Basophils 0.6 % (0-2); % Eosinophils 1.8 % (0-6); % Immature Granulocytes 0.1 % (0-0.5); % Lymphocytes 41.9 % (20.5-51.1); % Monocytes 6.2 % (1.7-9.3); % Neutrophils 49.4 % (42.2-75.2); Absolute Basophils 0.1 10^3/uL (0-0.2); Absolute Eosinophils 0.2 10^3/uL (0-0.7); Absolute Lymphocytes 3.6 10^3/uL (1.2-3.4); Absolute Monocytes 0.5 10^3/uL (0.1-0.6); Absolute Neutrophils 4.2 10^3/uL (1.4-6.5); Hematocrit 36.7 % (37.0-47.0); Hemoglobin 11.4 g/dL (12.0-16.0); Mean Corp Hgb Conc. 31.1 g/dL (33.0-37.0); Mean Corpuscular Hgb 21.5 pg (27.0-31.0); Mean Corpuscular Volume 69.2 fL (81.0-99.0); Mean Platelet Volume 9.6 fL (7.4-10.4); Nucleated Red Blood Cells % 0 %; Platelet Count 240 10^3/uL (130-400); Red Cell Dist. Width 14.6 % (11.5-14.5); White Blood Cell Count 8.5 10^3/uL (4.8-10.8)
[2024-02-02 21:05] LABS: ALT (SGPT) 22 U/L (0-35); AST (SGOT) 27 U/L (14-36); Albumin 4.1 g/dl (3.5-5.0); Alkaline Phosphatase 76 U/L (38-126); Blood Urea Nitrogen 20 mg/dl (7-17); Calcium 9.4 mg/dl (8.4-10.2); Carbon Dioxide 31 mmol/L (22-30); Chloride 101 mmol/L (98-107); Glucose 99 mg/dl (70-99); Potassium 4.7 mmol/L (3.5-5.1); Sodium 139 mmol/L (135-145); Total Bilirubin 0.3 mg/dl (0.2-1.3); Total Protein 6.9 g/dl (6.3-8.2); eGFR > 60.00
[2024-02-02 21:13] LABS: Troponin I < 0.012 ng/ml
[2024-02-02 23:58] VITALS: BP 132/59
[2024-02-02 23:59] VITALS: BMI 33.3
--- NOTE | 2024-02-03 01:14 | ED.GENMED ---
History of Present Illness
General
Chief Complaint: Weakness
Source: patient
Exam Limitations: none
Time Seen by Provider: 02/03/24 00:51
Nursing documentation reviewed up to this point in time: agreed with
History of Present Illness
History of Present Illness:
Pleasant 79-year-old female presents with pain in her left side of her chest fatigue with mild shortness of breath question fever and chills associated with a swollen left leg she thought was similar to when she had varicose vein which was
surgically repaired a few years ago, no nausea or vomiting she feels some gas in her belly, does not drink or smoke, takes aspirin but no other blood thinner
Past History
Past History
ED Past Medical History: Hypercholesterolemia and Other (Thalassemia, kidney stones, migraines)
ED Past Surgical History: Cholecystectomy and Gynecological (Hysterectomy)
Social History
Tobacco: Non-smoker
Alcohol: None
Drug: None
Personal:
Living: with family
Employment: Retired
Review of Systems
Review of Systems
All Other Systems: Not applicable
Constitutional: Reports fever, fatigue and chills
Respiratory: Reports trouble breathing; Denies cough
Cardiac: Reports chest pain
ABD/GI: Reports no symptoms
: Reports no symptoms
Musculoskeletal: Reports edema
Skin: Reports no symptoms
Neurological: Reports no symptoms
Phy Exam
Physical Exam
Physical Exam:
Physical Exam
General: no apparent distress, not acutely ill
Neck: No jaundice
Heart: s1/s2 regular rate and rhythm, no murmur. equal radial pulses.
Lungs: Faint crackles at the bases
Abdomen: Nontender
Neuro: alert and oriented. no focal neurological deficits
Skin: no rash
Psychiatric: well kept. interactive and cooperative
Extremities: Swelling left thigh and the calf
Course
Orders/Labs/Results
Orders:
Orders
02/02/24 20:29
Electrocardiogram (*1) Urgent
Reason for Study: Fatigue / Weakness
EKG- Treatment ONCE
02/02/24 20:39
CMP [Comprehensive Metabolic Panel] Urgent
Complete Blood Count/With Diff Urgent
Troponin I Urgent
02/03/24 01:06
CT Chest Pe Study Urgent
Comment:
Reason For Exam: sob swollen leg
02/03/24 01:07
US Periph Venous LOWER Ext LT Urgent
Comment:
Reason For Exam: swollen leg
Abnormal Lab Results
02/02/24
20:39
Hgb 11.4 L g/dL
(12.0-16.0)
Hct 36.7 L %
(37.0-47.0)
MCV 69.2 L fL
(81.0-99.0)
MCH 21.5 L pg
(27.0-31.0)
MCHC 31.1 L g/dL
(33.0-37.0)
RDW 14.6 H %
(11.5-14.5)
Absolute Lymphs (auto) 3.6 H 10^3/uL
(1.2-3.4)
Carbon Dioxide 31 H mmol/L
(22-30)
BUN 20 H mg/dl
(7-17)
02/02/24 20:39
02/02/24 20:39
Vital Signs
Initial and Last Documented VS:
Initial Vital Signs
Temp Pulse Resp BP Pulse Ox
98.8 F 60 18 163/76 100
02/02/24 20:33 02/02/24 20:33 02/02/24 20:33 02/02/24 20:33 02/02/24 20:33
Last Documented Vital Signs
Temp Pulse Resp BP Pulse Ox
98.8 F 60 16 132/59 97
02/02/24 20:33 02/03/24 00:00 02/03/24 00:00 02/02/24 23:58 02/03/24 00:02
MDM/Problems Addressed
Differential Diagnosis Includes:
DVT PE varicosities superficial thrombophlebitis pneumonia doubt ACS by history physical EKG and lab
MDM/Problems Addressed:
Chest pain shortness of breath swollen leg
Acute Exacerbation and/or Progression of Chronic Illness:
Varicose
*Radiology
Radiology exam reviewed: preliminary read by ED provider
*Pulse Oximetry
Patient hypoxic: no
*EKG
Interpreted by ED Provider?: Yes
Interpretation: normal
Comparison EKG: no comparison EKG present
Heart Rate: 78
Rate: normal
Rhythm: sinus
Ischemia: no ischemia
*Ripsaw Operator Interpretation
Rate: normal
Interpretation: normal
Heart Rate: 74
Rhythm: sinus
*Critical Care Note
Total Time (30-74mins, 75-104mins- exclusive of procedures): Not Applicable
Update Note
Update Note:
Update labs are noted, CT of the chest report noted Dopplers pending
ED Attending Note
-
Portions of this chart may have been created with voice recognition software.� Occasional wrong word or��sound alike� substitutions may have occurred due to the inherent limitations of voice recognition software.
Discharge Plan
Departure
Patient Disposition: Home (Routine Discharge)
Date of Disposition: 02/03/24
Time of Disposition: 02:47
Patient with high blood pressure during this ER visit?: No
Condition: Good
Discharge Problem:
Weakness
Instructions: Generalized Weakness (DC)
Prescriptions:
No Action
simvastatin 40 mg Tablet
40 mg PO QPM
cyanocobalamin (vitamin B-12) 500 mcg Tablet
500 mcg PO DAILY
nortriptyline 10 mg Capsule
30 mg PO QHS
vitamin K2 40 mcg Tablet
40 mcg PO DAILY
ascorbic acid (vitamin C) [Vitamin C] 500 mg Tablet
500 mg PO DAILY
zinc 50 mg Tablet
50 mg PO DAILY
cholecalciferol (vitamin D3) [Vitamin D3] 125 mcg (5,000 unit) Tablet
125 mcg PO DAILY
pantoprazole [Protonix] 40 mg Tablet,Delayed Release (Dr/Ec)
40 mg PO DAILY
ipratropium bromide 0.02 % Solution
0.5 mg INHALATION DAILY
Referrals:
Gregory Coronado MD [Family Provider] - Next open appointment
Activity Restrictions/Additional Instructions:
Drink plenty of fluids Tylenol or ibuprofen for body aches or fevers
Interventions
Interventions:
*Risk Screen - Suicide Last Done: 02/02/24 20:33
*General Assessment Last Done: 02/02/24 20:33
*Neglect/Abuse Screening Last Done: 02/02/24 20:33
*ED COVID-19 Vaccine History Last Done: 02/02/24 20:33
ED- Cardiac Assessment Last Done: 02/03/24 00:00
ED- Neurological Assessment Last Done: 02/03/24 00:01
ED- Pulmonary Assessment Last Done: 02/03/24 00:02
Discharge Date and Time
Print Language: TAJIK
[2024-02-03 01:35] VITALS: BP 146/67
[2024-02-03 02:00] VITALS: BP 127/64
[2024-02-03] MEDS: TORADOL 30 MG IV (02:59)
[2024-02-03 04:07] VITALS: BP 130/68
== END 2024-02-03 04:00 | disposition home or self-care (01) ==
LOC: EMR 20:28
PROVIDERS: Emergency Medicine; EMERGENCY PHYSICIAN Emergency Medicine; FAMILY PHYSICIAN Family Medicine
DX: R53.1 Weakness (principal); R22.42 Localized swelling, mass and lump, left lower limb; E78.00 Pure hypercholesterolemia, unspecified; D56.9 Thalassemia, unspecified; Z79.82 Long term (current) use of aspirin; Z90.49 Acquired absence of other specified parts of digestive tract; Z90.710 Acquired absence of both cervix and uterus
CPT/HCPCS: 99284; 96374; 71275; 80053; 84484; 85025; 93005; 93971; Q9967

== ENCOUNTER 2024-02-14 09:46 | Emergency (ER) | payer MEDICARE, OTHER, SELFPAY ==
[2024-02-14 10:10] VITALS: BP 123/64
[2024-02-14 11:12] LABS: % Basophils 0.5 % (0-2); % Eosinophils 1.9 % (0-6); % Immature Granulocytes 0.3 % (0-0.5); % Lymphocytes 34.3 % (20.5-51.1); % Monocytes 6.6 % (1.7-9.3); % Neutrophils 56.4 % (42.2-75.2); Absolute Eosinophils 0.1 10^3/uL (0-0.7); Absolute Lymphocytes 2.2 10^3/uL (1.2-3.4); Absolute Monocytes 0.4 10^3/uL (0.1-0.6); Absolute Neutrophils 3.6 10^3/uL (1.4-6.5); Hematocrit 38.5 % (37.0-47.0); Hemoglobin 12.1 g/dL (12.0-16.0); Mean Corp Hgb Conc. 31.4 g/dL (33.0-37.0); Mean Corpuscular Hgb 21.8 pg (27.0-31.0); Mean Corpuscular Volume 69.4 fL (81.0-99.0); Mean Platelet Volume 10.2 fL (7.4-10.4); Nucleated Red Blood Cells % 0 %; Platelet Count 247 10^3/uL (130-400); Red Blood Cell Count 5.55 10^6/uL (4.20-5.40); Red Cell Dist. Width 14.9 % (11.5-14.5); White Blood Cell Count 6.4 10^3/uL (4.8-10.8)
[2024-02-14 11:30] LABS: ALT (SGPT) 22 U/L (0-35); AST (SGOT) 27 U/L (14-36); Alkaline Phosphatase 67 U/L (38-126); Blood Urea Nitrogen 20 mg/dl (7-17); Calcium 9.3 mg/dl (8.4-10.2); Carbon Dioxide 31 mmol/L (22-30); Chloride 104 mmol/L (98-107); Glucose 95 mg/dl (70-99); Potassium 4.8 mmol/L (3.5-5.1); Sodium 141 mmol/L (135-145); Total Bilirubin 0.4 mg/dl (0.2-1.3); Total Protein 6.8 g/dl (6.3-8.2); eGFR > 60.00
[2024-02-14 11:35] LABS: Troponin I < 0.012 ng/ml
[2024-02-14 12:49] VITALS: BP 138/60
[2024-02-14 13:00] VITALS: BP 110/57
--- NOTE | 2024-02-14 13:02 | EDRN ---
Patient states she was unable to follow up w/ her doctor due to the holiday. States she does not believe taking tylenol or ibuprofen will work for her and is requesting a stress test. Patient has not taken anything for her discomfort. C.o
abdominal gas.
--- NOTE | 2024-02-14 13:23 | ED.GENMED ---
History of Present Illness
General
Chief Complaint: Breathing Problem
Source: patient and spouse
Exam Limitations: none
Time Seen by Provider: 02/14/24 12:53
History of Present Illness
History of Present Illness:
79-year-old female presents with pinpoint left chest pain and shortness of breath that has been ongoing for 1 month. The patient states that she was here 2 weeks ago and does not have a follow-up appointment for another 2 weeks. She became
concerned because the pain has been persistent. Patient states that the pain has not changed in any way but just persist. No fevers. No leg swelling. No leg pain. No back pain. Patient admits that she feels short of breath even giving history.
Spouse states that the pain has been persistent.
Past History
Past History
ED Past Medical History: Hypercholesterolemia and Other (Thalassemia, kidney stones, migraines)
ED Past Surgical History: Cholecystectomy and Gynecological (Hysterectomy)
Social History
Tobacco: Non-smoker
Alcohol: None
Drug: None
Personal:
Living: with family
Employment: Retired
Phy Exam
Physical Exam
Physical Exam:
CONSTITUTIONAL Patient alert and oriented to person, place and time. Well-appearing. Vital signs reviewed.
HEAD atraumatic, normocephalic.
EYES eyelids normal to inspection, Extraocular muscles intact, Conjunctiva normal, Sclera normal.
NECK normal range of motion, Trachea midline, no jugular venous distention.
RESPIRATORY CHEST No respiratory distress noted, Chest expansion equal, Bilateral breath sounds clear. The patient does have focal tenderness at the costochondral interface and around rib 5 just off the sternum on the left. This does reproduce
the symptoms
CARDIOVASCULAR regular rate and rhythm, Heart sounds normal.
ABDOMEN abdomen nontender, Bowel sounds normal. No distention.
BACK normal inspection, no obvious deformities
UPPER EXTREMITY range of motion normal, Motor strength normal, no cyanosis, no edema.
LOWER EXTREMITY range of motion normal, Motor strength normal, no cyanosis, no edema.
NEURO Speech normal, No focal motor deficits, Viola coma scale 15, Memory normal, Cranial Nerves intact to screening exam.
SKIN skin warm, dry, and normal in color.
Scores
Heart Failure Risk
Heart Failure Risk Score: Not Applicable
Course
Orders/Labs/Results
Orders:
Orders
02/14/24 10:13
EKG [Electrocardiogram (*1)] Urgent
Reason for Study: Chest Pain
EKG- Treatment ONCE
02/14/24 11:03
Complete Blood Count/With Diff Urgent
Comprehensive Metabolic Panel Urgent
Lipase Urgent
Comment: ADD ON
NT-proBNP Urgent
Comment: ADD ON
Troponin I Urgent
02/14/24 13:02
Add On- LAB Urgent
Tests Added?: bnp
02/14/24 13:23
CR Chest - 2 Views Urgent
Comment:
Reason For Exam: cp, sob
02/14/24 13:31
Add On- LAB Urgent
Tests Added?: lipase
Abnormal Lab Results
02/14/24
11:03
RBC 5.55 H 10^6/uL
(4.20-5.40)
MCV 69.4 L fL
(81.0-99.0)
MCH 21.8 L pg
(27.0-31.0)
MCHC 31.4 L g/dL
(33.0-37.0)
RDW 14.9 H %
(11.5-14.5)
Carbon Dioxide 31 H mmol/L
(22-30)
BUN 20 H mg/dl
(7-17)
02/14/24 11:03
02/14/24 11:03
Vital Signs
Initial and Last Documented VS:
Initial Vital Signs
Temp Pulse Resp BP Pulse Ox
98.2 F 64 18 123/64 98
02/14/24 10:10 02/14/24 10:10 02/14/24 10:10 02/14/24 10:10 02/14/24 10:10
Last Documented Vital Signs
Temp Pulse Resp BP Pulse Ox
98.2 F 68 13 112/59 96
02/14/24 10:10 02/14/24 15:15 02/14/24 15:15 02/14/24 15:00 02/14/24 15:15
MDM/Problems Addressed
Differential Diagnosis Includes:
Musculoskeletal chest pain, ACS, PE, pneumothorax, pneumonia, CHF
MDM/Problems Addressed:
Chest pain
*Radiology
Radiology exam reviewed: all reviewed NAD by ED Provider
*Pulse Oximetry
Patient hypoxic: no
*EKG
Interpreted by ED Provider?: Yes
Interpretation: normal
Rate: normal
Rhythm: sinus
[place]: normal axis
Interval: normal interval
QRS Pattern: normal QRS
Ischemia: no ischemia
*Tmd Teacher Interpretation
Rate: normal
Interpretation: normal
Rhythm: sinus
*Critical Care Note
Total Time (30-74mins, 75-104mins- exclusive of procedures): Not Applicable
Data Reviewed
Review of Other/Old Records Reveals: Radiology Studies (CTA report reviewed from January 2024)
Source: patient and spouse
Further Testing Considered But Not Given:
Consider CTA but patient recently had a CTA and symptoms have been ongoing for 4 weeks without hypoxia, tachypnea or tachycardia
Patient Management
Escalation/DeEscalation of care consider admission/obs:
Symptoms x 1 week. Has cardiology appointment planned but will partnered chest pain follow-up hotline. No hypoxia. Recent CTA negative. Troponin negative. EKG normal. She is clearly reproducible with her pain to the left chest wall. Unclear
etiology but she does not appear tachypneic in any way. No conversational dyspnea. Okay for discharge
ED Attending Note
-
Portions of this chart may have been created with voice recognition software.� Occasional wrong word or��sound alike� substitutions may have occurred due to the inherent limitations of voice recognition software.
Discharge Plan
Departure
Patient Disposition: Home (Routine Discharge)
Date of Disposition: 02/14/24
Time of Disposition: 15:44
Patient with high blood pressure during this ER visit?: No
Discharge Problem:
Chest pain, Acute dyspnea
Instructions: Shortness of Breath (Dyspnea) (DC), *CBC Heart Failure Instructions
Prescriptions:
No Action
simvastatin 40 mg Tablet
40 mg PO QPM
cyanocobalamin (vitamin B-12) 500 mcg Tablet
500 mcg PO DAILY
nortriptyline 10 mg Capsule
30 mg PO QHS
vitamin K2 40 mcg Tablet
40 mcg PO DAILY
ascorbic acid (vitamin C) [Vitamin C] 500 mg Tablet
500 mg PO DAILY
zinc 50 mg Tablet
50 mg PO DAILY
cholecalciferol (vitamin D3) [Vitamin D3] 125 mcg (5,000 unit) Tablet
125 mcg PO DAILY
pantoprazole [Protonix] 40 mg Tablet,Delayed Release (Dr/Ec)
40 mg PO DAILY
ipratropium bromide 0.02 % Solution
0.5 mg INHALATION DAILY
Referrals:
Gregory Coronado MD [Family Provider] -
Activity Restrictions/Additional Instructions:
Please see cardiology in follow-up as planned. Return immediately for chest pain that is worsening, shortness of breath that is worsening, fevers, lightheadedness, passing out episode or any other concerns. Consider Tylenol or even occasional
ibuprofen to see if that helps with your discomfort in your chest.
Interventions
Interventions:
*Risk Screen - Suicide Last Done: 02/14/24 10:10
*General Assessment Last Done: 02/14/24 10:10
*Neglect/Abuse Screening Last Done: 02/14/24 13:01
ED- Fall Risk Assessment Last Done: 02/14/24 15:55
*ED COVID-19 Vaccine History Last Done: 02/14/24 10:10
*Nursing Disposition Last Done: 02/14/24 15:55
ED- Cardiac Assessment Last Done: 02/14/24 13:01
ED- Pulmonary Assessment Last Done: 02/14/24 13:01
Discharge Date and Time
Discharge Date/Time: 02/14/24 16:06
Print Language: [email or web address]
[2024-02-14 14:27] VITALS: BP 136/67
[2024-02-14 14:32] LABS: Lipase 82 U/L (23-300)
[2024-02-14 14:55] LABS: NT-proBNP 160 pg/ml
[2024-02-14 15:00] VITALS: BP 112/59
[2024-02-14 16:05] VITALS: BMI 32.6
== END 2024-02-14 16:06 | disposition home or self-care (01) ==
LOC: EMR 09:46
PROVIDERS: Emergency Medicine; EMERGENCY PHYSICIAN Emergency Medicine; FAMILY PHYSICIAN Family Medicine
DX: R07.89 Other chest pain (principal); R06.09 Other forms of dyspnea
CPT/HCPCS: 99285; 71046; 80053; 83690; 83880; 84484; 85025; 93005

== ENCOUNTER 2024-04-01 15:51 | Emergency (ER) | payer MEDICARE, OTHER, SELFPAY ==
[2024-04-01 16:02] VITALS: BP 148/116
[2024-04-01 16:57] VITALS: BMI 31.7
--- NOTE | 2024-04-01 16:58 | EDRN ---
Pt had a stress test done about 3 weeks ago and a cardiac cath2 weeks ago. Pt feels palpitations which she has had for 2 months and says it got worse around 1300 today. Pt has had intermittent dizziness. No cp, sob, n/v, fever/chills. urinary
symptoms. Pt says 'I feel like I'm drunk today.'
[2024-04-01 17:04] VITALS: BP 111/77
--- NOTE | 2024-04-01 17:18 | EDRN ---
While Dr Bartlett talking with pt and family, pt converted to NSR in 70's - EDT to obtained repeat EKG
--- NOTE | 2024-04-01 17:19 | ED.GENMED ---
History of Present Illness
General
Chief Complaint: Cardiac Symptoms
Time Seen by Provider: 04/01/24 17:06
History of Present Illness
History of Present Illness:
79-year-old female history of hyperlipidemia, GERD presenting with palpitations starting around 1 PM. Patient states that she is had palpitations intermittently since January 2024 but usually resolve after coughing. Patient states that did not
resolve today prompting ED evaluation. Patient denies chest pain or shortness of breath. Patient reports dizziness. Of note patient states that she had a cardiac workup at [facility] where she had a normal cardiac catheterization last
week. Patient denies history of atrial fibrillation. Patient is not on blood thinners.
Past History
Past History
ED Past Medical History: Hypercholesterolemia and Other (Thalassemia, kidney stones, migraines)
ED Past Surgical History: Cholecystectomy and Gynecological (Hysterectomy)
Social History
Tobacco: Non-smoker
Alcohol: None
Drug: None
Personal:
Living: with family
Employment: Retired
Phy Exam
Physical Exam
Physical Exam:
General: Alert, no acute distress
Head: NCAT
Eyes: clear conjunctiva
Neck: supple
Cardiac: Tachycardia, irregularly irregular rhythm, no murmur
Lungs: clear to auscultation bilaterally. No wheezes, rales, or rhonchi. Speaking full unlabored sentences. No respiratory distress.
Abdomen: soft, nondistended nontender. No rebound or guarding.
MSK: no lower extremity edema bilaterally. No deformity
Skin: warm, dry
Neuro: Alert and oriented x3. no focal deficits
Course
Orders/Labs/Results
Orders:
Orders
04/01/24 15:53
ECG [Electrocardiogram (*1)] Urgent
Reason for Study: Palpitations
EKG- Treatment ONCE
04/01/24 17:15
Complete Blood Count/With Diff Urgent
Comprehensive Metabolic Panel Urgent
Magnesium Urgent
Troponin I Urgent
04/01/24 17:18
EKG [Electrocardiogram (*1)] Urgent
Reason for Study: Palpitations
EKG- Treatment ONCE
04/01/24 17:19
EKG [Electrocardiogram (*1)] Urgent
Reason for Study: Palpitations
04/01/24 18:44
Apixaban [Eliquis] 5 mg PO ONCE STA
Abnormal Lab Results
04/01/24
17:15
RBC 5.44 H 10^6/uL
(4.20-5.40)
Hgb 11.8 L g/dL
(12.0-16.0)
Hct 36.9 L %
(37.0-47.0)
MCV 67.8 L fL
(81.0-99.0)
MCH 21.7 L pg
(27.0-31.0)
MCHC 32.0 L g/dL
(33.0-37.0)
Absolute Lymphs (auto) 3.5 H 10^3/uL
(1.2-3.4)
BUN 19 H mg/dl
(7-17)
04/01/24 17:15
04/01/24 17:15
Vital Signs
Initial and Last Documented VS:
Initial Vital Signs
Temp Pulse Resp BP Pulse Ox
98.2 F 65 18 148/116 98
04/01/24 16:02 04/01/24 16:02 04/01/24 16:02 04/01/24 16:02 04/01/24 16:02
Last Documented Vital Signs
Temp Pulse Resp BP Pulse Ox
98.2 F 71 13 118/88 97
04/01/24 16:02 04/01/24 18:01 04/01/24 18:01 04/01/24 18:01 04/01/24 18:01
MDM/Problems Addressed
Differential Diagnosis Includes:
New onset atrial fibrillation, electrolyte abnormality, anemia
MDM/Problems Addressed:
79-year-old female presenting with palpitations starting around 1 PM today with associated dizziness. Patient reports similar palpitations intermittently for the past 2 months. Patient states that she had a normal cardiac catheterization 2 weeks
ago at [place]. No history of atrial fibrillation. On initial EKG, patient was in atrial fibrillation with RVR. Patient spontaneously converted to a normal sinus rhythm while I was in the room, no medications were given. Will repeat EKG, check
labs, reevaluate. If patient maintains normal sinus rhythm, will consider discharge with anticoagulation given CHADVASC score 3
Repeat EKG shows NSR at 68bpm with VT 176 QTc 423, no stemi
Labs reviewed. Hemoglobin at baseline. Electrolytes within normal limits. Troponin within normal limits. On reevaluation, patient continues to be in normal sinus rhythm with rates in the 60s. Patient asymptomatic. Given ChadVASC score 3, will
start Eliquis. Discussed results with patient at bedside. Discussed side effects of Eliquis with patient and family. Discussed return precautions. Stable for discharge with cardiology follow-up
*Critical Care Note
Total Time (30-74mins, 75-104mins- exclusive of procedures): Not Applicable
ED Attending Note
-
Portions of this chart may have been created with voice recognition software.� Occasional wrong word or��sound alike� substitutions may have occurred due to the inherent limitations of voice recognition software.
Discharge Plan
Departure
Patient Disposition: Home (Routine Discharge)
Date of Disposition: 04/01/24
Time of Disposition: 18:17
Patient with high blood pressure during this ER visit?: Yes
Discharge Problem:
Atrial fibrillation with rapid ventricular response
Instructions: Atrial fibrillation - Discharge instructions
Prescriptions:
New
Eliquis 5 mg tablet
5 mg PO BID Qty: 90 0RF
No Action
simvastatin 40 mg Tablet
40 mg PO QPM
cyanocobalamin (vitamin B-12) 500 mcg Tablet
500 mcg PO DAILY
nortriptyline 10 mg Capsule
30 mg PO QHS
vitamin K2 40 mcg Tablet
40 mcg PO DAILY
ascorbic acid (vitamin C) [Vitamin C] 500 mg Tablet
500 mg PO DAILY
zinc 50 mg Tablet
50 mg PO DAILY
cholecalciferol (vitamin D3) [Vitamin D3] 125 mcg (5,000 unit) Tablet
125 mcg PO DAILY
pantoprazole [Protonix] 40 mg Tablet,Delayed Release (Dr/Ec)
40 mg PO DAILY
ipratropium bromide 0.02 % Solution
0.5 mg INHALATION DAILY
Referrals:
Juan J Ying MD [Family Provider] -
Laura Krishna MD [Active] -
Activity Restrictions/Additional Instructions:
Take Eliquis twice daily
Follow up with cardiology next week
Return to the emergency department for palpitations, black/bloody stools, if you hit your head or new/worsening symptoms
Interventions
Interventions:
*Risk Screen - Suicide Last Done: 04/01/24 16:58
*General Assessment Last Done: 04/01/24 16:02
*Neglect/Abuse Screening Last Done: 04/01/24 16:58
*ED COVID-19 Vaccine History Last Done: 04/01/24 16:58
*Nursing Disposition Last Done: 04/01/24 18:49
ED- Pulmonary Assessment Last Done: 04/01/24 17:05
ED- Cardiac Assessment Last Done: 04/01/24 17:15
Discharge Date and Time
Discharge Date/Time: 04/01/24 18:49
Print Language: PUERTO RICAN
[2024-04-01 17:25] LABS: % Basophils 0.4 % (0-2); % Eosinophils 1.7 % (0-6); % Immature Granulocytes 0.2 % (0-0.5); % Lymphocytes 38.5 % (20.5-51.1); % Monocytes 5.3 % (1.7-9.3); % Neutrophils 53.9 % (42.2-75.2); Absolute Eosinophils 0.2 10^3/uL (0-0.7); Absolute Lymphocytes 3.5 10^3/uL (1.2-3.4); Absolute Monocytes 0.5 10^3/uL (0.1-0.6); Absolute Neutrophils 4.9 10^3/uL (1.4-6.5); Hematocrit 36.9 % (37.0-47.0); Hemoglobin 11.8 g/dL (12.0-16.0); Mean Corpuscular Hgb 21.7 pg (27.0-31.0); Mean Corpuscular Volume 67.8 fL (81.0-99.0); Mean Platelet Volume 9.6 fL (7.4-10.4); Nucleated Red Blood Cells % 0 %; Platelet Count 323 10^3/uL (130-400); Red Blood Cell Count 5.44 10^6/uL (4.20-5.40); Red Cell Dist. Width 14.4 % (11.5-14.5)
[2024-04-01 17:40] LABS: ALT (SGPT) 22 U/L (0-35); AST (SGOT) 31 U/L (14-36); Albumin 4.2 g/dl (3.5-5.0); Alkaline Phosphatase 81 U/L (38-126); Blood Urea Nitrogen 19 mg/dl (7-17); Calcium 9.5 mg/dl (8.4-10.2); Carbon Dioxide 27 mmol/L (22-30); Chloride 102 mmol/L (98-107); Estimated Creatinine Clearance 72 ml/min; Glucose 89 mg/dl (70-99); Magnesium 2.3 mg/dl (1.6-2.3); Potassium 4.3 mmol/L (3.5-5.1); Sodium 139 mmol/L (135-145); Total Bilirubin 0.8 mg/dl (0.2-1.3); Total Protein 7.1 g/dl (6.3-8.2); eGFR > 60.00
[2024-04-01 17:59] LABS: Troponin I < 0.012 ng/ml
[2024-04-01 18:01] VITALS: BP 118/88
[2024-04-01] MEDS: ELIQUIS 5 MG PO (18:47)
== END 2024-04-01 18:49 | disposition home or self-care (01) ==
LOC: EMR 15:51
PROVIDERS: EMERGENCY PHYSICIAN Emergency Medicine; FAMILY PHYSICIAN Student in an Organized Health Care Education/Training Program
DX: R00.2 Palpitations (principal); E78.00 Pure hypercholesterolemia, unspecified; K21.9 Gastro-esophageal reflux disease without esophagitis; D56.9 Thalassemia, unspecified; I48.91 Unspecified atrial fibrillation; Z79.01 Long term (current) use of anticoagulants; Z87.442 Personal history of urinary calculi; Z90.49 Acquired absence of other specified parts of digestive tract; Z90.710 Acquired absence of both cervix and uterus
CPT/HCPCS: 99283; 80053; 83735; 84484; 85025; 93005

== ENCOUNTER 2024-04-03 00:24 | Emergency (ER) | payer MEDICARE, OTHER, SELFPAY ==
[2024-04-03 00:27] VITALS: BP 142/79
[2024-04-03 02:52] LABS: % Basophils 0.6 % (0-2); % Eosinophils 2.7 % (0-6); % Immature Granulocytes 0.3 % (0-0.5); % Lymphocytes 41.1 % (20.5-51.1); % Monocytes 5.6 % (1.7-9.3); % Neutrophils 49.7 % (42.2-75.2); Absolute Eosinophils 0.2 10^3/uL (0-0.7); Absolute Lymphocytes 2.9 10^3/uL (1.2-3.4); Absolute Monocytes 0.4 10^3/uL (0.1-0.6); Absolute Neutrophils 3.5 10^3/uL (1.4-6.5); Hematocrit 35.3 % (37.0-47.0); Hemoglobin 10.9 g/dL (12.0-16.0); Mean Corp Hgb Conc. 30.9 g/dL (33.0-37.0); Mean Corpuscular Hgb 21.5 pg (27.0-31.0); Mean Corpuscular Volume 69.8 fL (81.0-99.0); Mean Platelet Volume 9.6 fL (7.4-10.4); Nucleated Red Blood Cells % 0 %; Platelet Count 287 10^3/uL (130-400); Red Blood Cell Count 5.06 10^6/uL (4.20-5.40); Red Cell Dist. Width 14.5 % (11.5-14.5)
[2024-04-03 03:09] LABS: ALT (SGPT) 19 U/L (0-35); AST (SGOT) 27 U/L (14-36); Albumin 3.9 g/dl (3.5-5.0); Alkaline Phosphatase 71 U/L (38-126); Blood Urea Nitrogen 17 mg/dl (7-17); Calcium 9.2 mg/dl (8.4-10.2); Carbon Dioxide 25 mmol/L (22-30); Chloride 105 mmol/L (98-107); Glucose 101 mg/dl (70-99); Potassium 4.4 mmol/L (3.5-5.1); Sodium 137 mmol/L (135-145); Total Bilirubin 0.8 mg/dl (0.2-1.3); Total Protein 6.6 g/dl (6.3-8.2); eGFR > 60.00
[2024-04-03 03:19] VITALS: BP 129/74
[2024-04-03 03:21] LABS: Troponin I < 0.012 ng/ml
[2024-04-03 03:23] VITALS: BMI 31.6
--- NOTE | 2024-04-03 04:03 | ED.GENMED ---
History of Present Illness
General
Chief Complaint: Heart Rate Problem
Source: patient and family
Exam Limitations: none
Time Seen by Provider: 04/03/24 03:36
Nursing documentation reviewed up to this point in time: agreed with
History of Present Illness
History of Present Illness:
79-year-old female presents to the emergency department with a brief episode of palpitations. She states that for about an hour she felt that her heart was racing. She does have a history of paroxysmal A-fib and is maintained on Eliquis. She
follows with Dr. Crocker, cardiology at [facility]. Upon arrival to the hospital tonight, her symptoms resolved. Currently asymptomatic. Has not missed a dose of Eliquis.
Past History
Past History
ED Past Medical History: Hypercholesterolemia and Other (Thalassemia, kidney stones, migraines)
ED Past Surgical History: Cholecystectomy and Gynecological (Hysterectomy)
Social History
Tobacco: Non-smoker
Alcohol: None
Drug: None
Personal:
Living: with family
Employment: Retired
Review of Systems
Review of Systems
Allergies reviewed?: Yes
All Other Systems: ROS reviewed and negative except as documented in HPI and ROS
Constitutional: Reports no symptoms
EENT: Reports no symptoms
Respiratory: Reports no symptoms
Cardiac: Reports palpitations
ABD/GI: Reports no symptoms
: Reports no symptoms
Musculoskeletal: Reports no symptoms
Skin: Reports no symptoms
Neurological: Reports no symptoms
Endocrine: Reports no symptoms
Hematologic/Lymphatic: Reports no symptoms
Psychiatric: Reports no symptoms
Phy Exam
General Physical Exam
General Presentation: well appearing and no apparent distress
General Skin: warm and dry
General Habitus: normal
General Mental: alert
General Hydration: appears well hydrated
ENT Exam
ENT Exam: EOMI, pharynx normal, neck supple and normocephalic
Eye Exam
Eye Exam: PERRL, cornea clear and conjunctiva normal
Cardiovascular Exam
Cardiovascular Exam: regular rate/rhythm, no edema, no murmur and normal peripheral pulses
Pulmonary Exam
Pulmonary Exam: lungs clear, no respiratory distress, no rales, no crackles, no rhonchi, no stridor, no wheezing and no cough
Gastrointestinal Exam
Gastrointestinal Exam: normal bowel sounds, non tender, soft, no organomegaly, no pulsatile mass and non distended
Neurological Exam
Neurological Exam: alert, oriented x3, no motor deficits and speech normal
Musculoskeletal Exam
Musculoskeletal Exam: full ROM and no edema
Skin Exam
Skin Exam: normal color, warm/dry, no rash and no petechia
Psychiatric Exam
Psychiatric Exam: normal mood/affect
Course
Orders/Labs/Results
Orders:
Orders
04/03/24 00:29
Electrocardiogram (*1) Urgent
Reason for Study: Chest Pain
EKG- Treatment ONCE
04/03/24 02:28
Complete Blood Count/With Diff Urgent
04/03/24 02:29
Comprehensive Metabolic Panel Urgent
Troponin I Urgent
Abnormal Lab Results
04/03/24 04/03/24
02:28 02:29
Hgb 10.9 L g/dL
(12.0-16.0)
Hct 35.3 L %
(37.0-47.0)
MCV 69.8 L fL
(81.0-99.0)
MCH 21.5 L pg
(27.0-31.0)
MCHC 30.9 L g/dL
(33.0-37.0)
Glucose 101 H mg/dl
(70-99)
04/03/24 02:28
04/03/24 02:29
Vital Signs
Initial and Last Documented VS:
Initial Vital Signs
Temp Pulse Resp BP Pulse Ox
98 F 68 16 142/79 98
04/03/24 00:27 04/03/24 00:27 04/03/24 00:27 04/03/24 00:27 04/03/24 00:27
Last Documented Vital Signs
Temp Pulse Resp BP Pulse Ox
98 F 59 17 129/74 96
04/03/24 00:27 04/03/24 03:45 04/03/24 03:45 04/03/24 03:19 04/03/24 03:45
*EKG
Interpreted by ED Provider?: Yes
Interpretation: normal
Comparison EKG: changes noted
Heart Rate: 62
Rate: normal
Rhythm: sinus
[place]: normal axis
QRS Pattern: normal QRS
Ischemia: no ischemia
*Contact Center Assistant Interpretation
Rate: normal
Interpretation: normal
Rhythm: sinus
*Critical Care Note
Total Time (30-74mins, 75-104mins- exclusive of procedures): Not Applicable
ED Attending Note
-
Portions of this chart may have been created with voice recognition software.� Occasional wrong word or��sound alike� substitutions may have occurred due to the inherent limitations of voice recognition software.
Discharge Plan
Departure
Patient Disposition: Home (Routine Discharge)
Date of Disposition: 04/03/24
Time of Disposition: 04:05
Patient with high blood pressure during this ER visit?: Yes
Condition: Good
Discharge Problem:
Palpitations
Instructions: Palpitations (DC), BLOOD PRESSURE
Prescriptions:
No Action
simvastatin 40 mg Tablet
40 mg PO QPM
cyanocobalamin (vitamin B-12) 500 mcg Tablet
500 mcg PO DAILY
nortriptyline 10 mg Capsule
30 mg PO QHS
vitamin K2 40 mcg Tablet
40 mcg PO DAILY
ascorbic acid (vitamin C) [Vitamin C] 500 mg Tablet
500 mg PO DAILY
zinc 50 mg Tablet
50 mg PO DAILY
cholecalciferol (vitamin D3) [Vitamin D3] 125 mcg (5,000 unit) Tablet
125 mcg PO DAILY
pantoprazole [Protonix] 40 mg Tablet,Delayed Release (Dr/Ec)
40 mg PO DAILY
ipratropium bromide 0.02 % Solution
0.5 mg INHALATION DAILY
Eliquis 5 mg tablet
5 mg PO BID Qty: 90 0RF
Referrals:
[facility] [Outside]
Juan J Ying MD [Family Provider] -
Activity Restrictions/Additional Instructions:
As discussed, please follow-up with your sales account director Dr. Crocker at [facility].
It was a pleasure meeting you and taking part in your care. We hope for your continued healing and wellness.
Please read discharge instructions in their entirety. However, they are for general education and may not describe your exact diagnosis at discharge. Information on your ER visit and medical conditions were discussed with you along with appropriate
follow up information...
If indicated, please take your medications as instructed and indicated on discharge paperwork.
Please schedule a follow up appointment as directed. Call to schedule an appointment
Please return to the emergency department with ANY change in, persisting, or worsening of symptoms. If any of your symptoms do not improve, or persist, or become more severe within 6-12 hours, please return to the emergency department for further
care.
Please return to the emergency department if you develop a headache, neck pain/stiffness, fever greater than 100.4F, chest pain, shortness of breath, persistent nausea, vomiting, slurred speech, difficulty walking, numbness/tingling, weakness, signs
of infection or any other symptoms that are worrisome to you.
If you have any questions or concerns please do not hesitate to call the Hospital at or E-mail me directly at [email or web address]
Interventions
Interventions:
*Risk Screen - Suicide Last Done: 04/03/24 00:27
*General Assessment Last Done: 04/03/24 00:27
*Neglect/Abuse Screening Last Done: 04/03/24 00:27
ED- Fall Risk Assessment Last Done: 04/03/24 03:49
*ED COVID-19 Vaccine History Last Done: 04/03/24 04:15
*Nursing Disposition Last Done: 04/03/24 04:15
ED- Cardiac Assessment Last Done: 04/03/24 03:49
ED- Pulmonary Assessment Last Done: 04/03/24 03:49
Discharge Date and Time
Discharge Date/Time: 04/03/24 04:15
Print Language: PALESTINIAN
== END 2024-04-03 04:15 | disposition home or self-care (01) ==
LOC: EMR 00:24
PROVIDERS: EMERGENCY PHYSICIAN Student in an Organized Health Care Education/Training Program; FAMILY PHYSICIAN Student in an Organized Health Care Education/Training Program
DX: R00.2 Palpitations (principal); I48.0 Paroxysmal atrial fibrillation; E78.00 Pure hypercholesterolemia, unspecified; D56.9 Thalassemia, unspecified; Z79.01 Long term (current) use of anticoagulants; Z87.442 Personal history of urinary calculi; Z90.49 Acquired absence of other specified parts of digestive tract; Z90.710 Acquired absence of both cervix and uterus
CPT/HCPCS: 99283; 80053; 84484; 85025; 93005

== ENCOUNTER 2024-04-03 07:54 | Emergency (ER) | payer MEDICARE, OTHER, SELFPAY ==
[2024-04-03 07:56] VITALS: BP 133/74
[2024-04-03 08:20] VITALS: BP 124/61
[2024-04-03 08:26] VITALS: BMI 32.8
--- NOTE | 2024-04-03 08:26 | ED.GENMED ---
History of Present Illness
General
Chief Complaint: Heart Rate Problem
Source: patient and family (son at bedside)
Exam Limitations: none
Time Seen by Provider: 04/03/24 08:24
Nursing documentation reviewed up to this point in time: agreed with
History of Present Illness
History of Present Illness:
79-year-old female with history of paroxysmal A-fib on Eliquis, HLD presents for palpitations. She was seen and evaluated here at 1230, this morning by Dr. Medrano for same symptoms, her EKG showing NSR, no abnormal cardiac symptoms during stay
and DC'd home at 4:05 s.m.
Back now stating her palpitations returned upon returning home 5 a.m. They are intermittent with 'a little' chest pain and 'a little' SOB all similar to her earlier visit. Now has noted pain left side of neck also.
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
She wonders if whatever needs to be done can be done here.
Past History
Past History
ED Past Medical History: Hypercholesterolemia and Other (Thalassemia, kidney stones, migraines)
ED Past Surgical History: Cholecystectomy and Gynecological (Hysterectomy)
Social History
Tobacco: Non-smoker
Alcohol: None
Drug: None
Personal:
Living: with family
Employment: Retired
Review of Systems
Review of Systems
Allergies reviewed?: Yes
All Other Systems: ROS reviewed and negative except as documented in HPI and ROS
Constitutional: Denies fever or fatigue
Respiratory: Denies trouble breathing
Cardiac: Reports chest pain ('a little') and palpitations; Denies diaphoresis or syncope
ABD/GI: Denies abdominal pain or nausea
: Denies dysuria or difficulty voiding
Musculoskeletal: Reports neck pain (pain left side of neck)
Skin: Reports no symptoms
Neurological: Reports no symptoms
Phy Exam
Physical Exam
Physical Exam:
GENERAL: No acute distress. A&Ox3.
CONSTITUTIONAL: Afebrile.
EYES: clear, conjunctivae normal
ENMT: moist mucus membranes
RESPIRATORY: Regular respirations, nonlabored, lungs clear.
CARDIOVASCULAR: Regular rate and rhythm, no murmurs, no rubs.
GI: Soft, nontender, normal BS
MUSCULOSKELETAL: tender to palpation left lateral neck ST, pressing here immediately reproduces pain. Moves with ease. Well perfused.
SKIN: Warm, dry, pink
PSYCH: Normal mood and affect. Well kept, interactive and appropriate
NEUROLOGIC: Awake, alert and oriented. No focal neurological deficits
Course
Orders/Labs/Results
Orders:
Orders
04/03/24 07:55
EKG [Electrocardiogram (*1)] Urgent
Reason for Study: Palpitations
EKG- Treatment ONCE
04/03/24 09:12
TSH Reflex To Free T4 Urgent
04/03/24 10:52
Holter Monitor and Scan*(3) Urgent
Reason for Study: palpitations
Cardiology Consult: Melody Krishna
Does Pt. Have PERMANENT Pacemaker?: No
Vital Signs
Initial and Last Documented VS:
Initial Vital Signs
Temp Pulse Resp BP Pulse Ox
97.8 F 68 16 133/74 99
04/03/24 07:56 04/03/24 07:56 04/03/24 07:56 04/03/24 07:56 04/03/24 07:56
Last Documented Vital Signs
Temp Pulse Resp BP Pulse Ox
97.8 F 71 16 108/62 97
04/03/24 07:56 04/03/24 11:15 04/03/24 11:15 04/03/24 11:00 04/03/24 11:15
MDM/Problems Addressed
Differential Diagnosis Includes:
PAF, musculoskeletal left neck pain
MDM/Problems Addressed:
79-year-old female with history of paroxysmal A-fib on Eliquis, HLD presents for palpitations. She was seen and evaluated here at 1230, this morning by Dr. Medrano for same symptoms, her EKG showing NSR, no abnormal cardiac symptoms during stay
and DC'd home at 4:05 s.m.
Back now stating her palpitations returned upon returning home 5 a.m. They are intermittent with 'a little' chest pain and 'a little' SOB all similar to her earlier visit. Now has noted pain left side of neck also.
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
She wonders if whatever needs to be done can be done here.
10:30 AM:
TSH WNL
Bedside monitor showing NSR this entire visit
11:00 a[address] cardiology [address]. Krishna who had a tech come in and place a Holter monitor on patient. Patient to call office tomorrow to make a follow-up appointment.
Stable for discharge
Ambulated out with normal gait.
*Critical Care Note
Total Time (30-74mins, 75-104mins- exclusive of procedures): Not Applicable
ED Attending Note
-
Portions of this chart may have been created with voice recognition software.� Occasional wrong word or��sound alike� substitutions may have occurred due to the inherent limitations of voice recognition software.
Discharge Plan
Departure
Patient Disposition: Home (Routine Discharge)
Date of Disposition: 04/03/24
Time of Disposition: 11:10
Patient with high blood pressure during this ER visit?: No
Condition: Good
Discharge Problem:
Heart palpitations
Instructions: Palpitations (DC)
Prescriptions:
No Action
simvastatin 40 mg Tablet
40 mg PO QPM
cyanocobalamin (vitamin B-12) 500 mcg Tablet
500 mcg PO DAILY
nortriptyline 10 mg Capsule
30 mg PO QHS
vitamin K2 40 mcg Tablet
40 mcg PO DAILY
ascorbic acid (vitamin C) [Vitamin C] 500 mg Tablet
500 mg PO DAILY
zinc 50 mg Tablet
50 mg PO DAILY
cholecalciferol (vitamin D3) [Vitamin D3] 125 mcg (5,000 unit) Tablet
125 mcg PO DAILY
pantoprazole [Protonix] 40 mg Tablet,Delayed Release (Dr/Ec)
40 mg PO DAILY
ipratropium bromide 0.02 % Solution
0.5 mg INHALATION DAILY
Eliquis 5 mg tablet
5 mg PO BID Qty: 90 0RF
Referrals:
Juan J Ying MD [Family Provider] -
Melody Krishna MD [Active] - Call in 1-3 days for appt
Activity Restrictions/Additional Instructions:
As we discussed, call the cardiology office tomorrow and make a follow up appointment.
Interventions
Interventions:
*Risk Screen - Suicide Last Done: 04/03/24 07:56
*General Assessment Last Done: 04/03/24 08:26
*Neglect/Abuse Screening Last Done: 04/03/24 07:56
ED- Fall Risk Assessment Last Done: 04/03/24 08:26
*ED COVID-19 Vaccine History Last Done: 04/03/24 08:26
*Nursing Disposition Last Done: 04/03/24 11:42
ED- Cardiac Assessment Last Done: 04/03/24 08:31
ED- Pulmonary Assessment Last Done: 04/03/24 08:31
Discharge Date and Time
Discharge Date/Time: 04/03/24 11:43
Print Language: GABONESE
--- NOTE | 2024-04-03 08:32 | EDRN ---
Rashida OCAMPO in room w/ pt at this time.
[2024-04-03 09:00] VITALS: BP 126/58
--- NOTE | 2024-04-03 09:14 | EDRN ---
TSH blood drawn and sent to lab. Pt now OOB to BR at this time.
[2024-04-03 10:00] VITALS: BP 111/55
[2024-04-03 10:20] LABS: TSH Reflex To Free T4 1.57 uIU/ml (0.47-4.68)
--- NOTE | 2024-04-03 10:20 | EDRN ---
Pt requested to eat something and given a packet of animal crackers after this RN checked w/ I. Umm OCAMPO.
--- NOTE | 2024-04-03 10:24 | EDRN ---
This RN TT'd TSH result to Rashida OCAMPO.
[2024-04-03 11:00] VITALS: BP 108/62
--- NOTE | 2024-04-03 11:10 | EDRN ---
Holter monitor in place at this time.
== END 2024-04-03 11:43 | disposition home or self-care (01) ==
LOC: EMR 07:54
PROVIDERS: Registered Nurse; EMERGENCY PHYSICIAN Emergency Medicine; FAMILY PHYSICIAN Student in an Organized Health Care Education/Training Program
DX: R00.2 Palpitations (principal); I48.0 Paroxysmal atrial fibrillation; D56.9 Thalassemia, unspecified; E78.00 Pure hypercholesterolemia, unspecified; Z79.01 Long term (current) use of anticoagulants; Z87.442 Personal history of urinary calculi; Z90.49 Acquired absence of other specified parts of digestive tract; Z90.710 Acquired absence of both cervix and uterus
CPT/HCPCS: 99283; 80053; 84443; 84484; 85025; 93005; 93225; 93226

== ENCOUNTER → 2025-02-07 13:52 | Outpatient (REF) | payer MEDICARE, OTHER, SELFPAY | LOC: PAVMRI 13:52 | PROVIDERS: ATTENDING PHYSICIAN Specialist; FAMILY PHYSICIAN Student in an Organized Health Care Education/Training Program | DX: M47.816 Spondylosis without myelopathy or radiculopathy, lumbar region (principal) | CPT/HCPCS: 72148 ==